=== PATIENT | female | born 1945 | race Caucasian/White ===

== ENCOUNTER → 2018-05-31 14:37 | Outpatient (CLI) | payer MEDICARE, OTHER, SELFPAY ==
[2018-05-31 15:42] LABS: Hemoglobin A1C 8.2 % (4.5-6.2)
[2018-05-31 16:26] LABS: TSH (W/Ref FT4) 14.87 uIU/mL (0.358-3.74)
[2018-05-31 16:48] LABS: FREE T4 0.73 ng/dL (0.76-1.46)
== END ==
PROVIDERS: PCP Family Medicine; Visit Provider Family Medicine
DX: E11.9 Type 2 diabetes mellitus without complications (principal); R79.89 Other specified abnormal findings of blood chemistry
CPT/HCPCS: 36415; 83036; 84439; 84443

== ENCOUNTER → 2018-06-04 07:57 | Outpatient (CLI) | payer MEDICARE, OTHER, SELFPAY ==
--- NOTE | 2018-06-04 08:00 | DI.REPORT_ITS ---
SYMPTOM/DIAGNOSIS: FELL 3 WEEKS AGO, M79.605, PAIN IN LEG, LT FOOT PAIN, M79.672 LEFT FOOT: Three views. Comparison is made with 05/07/12. No acute or healing fracture or dislocation is identified. The joint spaces appear fairly well maintained. Mild spurring is noted at the talonavicular joint and the articulation between the navicular and the cuneiforms. There is spurring seen at the posterior calcaneus. There is diffuse soft tissue swelling of the left foot. No radiopaque foreign bodies are present. IMPRESSION: 1 No acute or healing fracture or dislocation. 2. Generalized soft tissue swelling of the left foot. LEFT TIB-FIB: Two views. No bone or joint abnormality is identified. No radiopaque foreign bodies are seen in the soft tissues. IMPRESSION: Negative examination.
== END ==
PROVIDERS: PCP Family Medicine; Visit Provider Family Medicine
DX: M79.672 Pain in left foot (principal); M79.605 Pain in left leg; M79.89 Other specified soft tissue disorders
CPT/HCPCS: 73590; 73630

== ENCOUNTER 2018-06-20 02:05 | Outpatient (CLI) | payer MEDICARE, OTHER, SELFPAY ==
--- NOTE | 2018-07-11 21:57 | W.CARDEVENT ---
Cardiac Event Recorder Cardiac Event Note: [employer] event recorder report Date of service: 06/20/2018 Referring physician: Dr. Vic Toth Enrollment: 06/20/2018-06/30/2018 Indication: Syncope Findings: 1. Baseline sinus rhythm, 63-126/min, average 90/min. 2. Rare PAC, less than 1%, no SVT, no AF. 3. Rare PVC, less than 1%, no VT. 4. No pauses. 5. 3 triggered events, all sinus rhythm/sinus tachycardia, 87-108/min, 1 event with a single PVC. 6. No symptoms recorded.
--- NOTE | 2018-07-11 22:01 | CER_ITS ---
Cardiac Event Recorder Cardiac Event Note: [employer] event recorder report Date of service: 06/20/2018 Referring physician: Dr. Vic Toth Enrollment: 06/20/2018-06/30/2018 Indication: Syncope Findings: 1. Baseline sinus rhythm, 63-126/min, average 90/min. 2. Rare PAC, less than 1%, no SVT, no AF. 3. Rare PVC, less than 1%, no VT. 4. No pauses. 5. 3 triggered events, all sinus rhythm/sinus tachycardia, 87-108/min, 1 event with a single PVC. 6. No symptoms recorded.
== END 2018-06-20 02:25 ==
PROVIDERS: PCP Family Medicine; Visit Provider Family Medicine
DX: R55 Syncope and collapse (principal); R00.0 Tachycardia, unspecified
CPT/HCPCS: 93225

== ENCOUNTER 2018-07-11 21:57 | Outpatient (CLI) | payer MEDICARE, OTHER, SELFPAY | END 2018-07-11 22:17 | PROVIDERS: PCP Family Medicine; Visit Provider Internal Medicine Cardiovascular Disease | DX: R55 Syncope and collapse (principal); R00.0 Tachycardia, unspecified | CPT/HCPCS: 0298T ==

== ENCOUNTER 2018-10-15 13:49 | Emergency (ER) | payer MEDICARE, OTHER, SELFPAY ==
[2018-10-15 14:13] VITALS: BP 159/100; PULSE 77; RESP 16; TEMP 37; O2SAT 94
--- NOTE | 2018-10-15 15:18 | DI.RAD_ITS ---
SYMPTOMS/DIAGNOSIS: COUGH X 1 WEEK CHEST X-RAY, PA AND LATERAL: Comparison is 03/01/18. The heart is normal in size. The lungs are clear. The mediastinal structures and pleura appear intact. IMPRESSION: Normal chest.
--- NOTE | 2018-10-15 16:09 | W.ED.GENAD ---
Discharge Plan Disposition Patient Disposition: HOME Condition: Good Discharge Details Chief Complaint: RespSymp Clinical Impression: Community acquired pneumonia Primary Care Provider: Jose Toth ED Provider: Brent Rojo Home Meds and New Rx's Prescriptions: New doxycycline hyclate 100 mg tablet 100 mg PO BID Qty: 14 RF: 0 No Action loratadine 10 MG tablet 10 mg PO DAILY PRN Qty: 90 RF: 4 aspirin [Aspir-81] 81 MG tablet,delayed release (DR/EC) 81 mg PO DAILY Qty: 90 RF: 3 gabapentin 100 MG capsule 2 cap PO HS Qty: 180 RF: 4 escitalopram oxalate [Lexapro] 20 MG tablet 20 mg PO DAILY Qty: 90 RF: 3 magnesium oxide [MagOx] 400 MG tablet 400 mg PO DAILY Qty: 90 RF: 3 Novolog Flexpen U-100 Insulin 100 UNIT/1 ML insulin pen 30 - 60 unit SQ AC Qty: 5 RF: 11 meclizine 25 MG tablet 12.5 - 25 mg PO TID PRNQty: 90 RF: 1 trazodone 150 MG tablet 0.5 - 1 tab PO HS Qty: 90 RF: 4 Lantus Solostar U-100 Insulin 100 UNIT/1 ML insulin pen 70 u SQ HS Qty: 5 RF: 11 simvastatin 20 MG tablet 20 mg PO HS Qty: 90 RF: 4 losartan 25 MG tablet 25 mg PO DAILY Qty: 90 RF: 3 levothyroxine 100 MCG tablet 100 mcg PO DAILY Qty: 90 RF: 3 blood sugar diagnostic [Blood Glucose Test] 1 EACH strip 1 strip Miscellaneous 4-6X/DAY Qty: 550 RF: 4 metformin 1,000 MG tablet 1,000 mg PO BID Qty: 180 RF: 4 omeprazole 20 MG capsule,delayed release(DR/EC) 20 mg PO DAILY Qty: 90 RF: 2 Flovent HFA 12 GM HFA aerosol inhaler 1 puff Inhalation BID Qty: 1 RF: 5 albuterol sulfate [ProAir HFA] 8.5 GM HFA aerosol inhaler 2 puff Inhalation Q6H PRN Qty: 1 RF: 11 pen needle, diabetic [BD Ultra-Fine Madai Pen Needle] 1 EACH needle 1 ea Miscellaneous AC & HS Qty: 400 RF: 4 lancets 1 EACH misc 1 ea Intradermal 4-6X/DAY Qty: 550 RF: 4 fluticasone 16 GM spray,suspension 1 - 2 spry NS DAILY PRN (Reason: Nasal Congestion) Qty: 1 RF: 0 guaifenesin [Mucinex] 1,200 MG tablet extended release 12hr 1,200 mg PO Q12H PRN (Reason: Cold Symptons) Qty: 14 RF: 0 Discharge Instructions Instructions: Community Acquired Pneumonia (ED) Additional Instructions: Please take your Ventolin inhaler every 4-6 hours for the next 24-48 hours. Please take the medication as directed. If you notice any worsening of your symptoms, or any new symptoms such as vomiting, diarrhea, fever, chills, shortness of breath, chest pain, numbness, weakness, or fainting , please return immediately to the emergency department for reevaluation. Please follow up with your primary care provider as soon as possible for reassessment and reevaluation. As always, it was a pleasure participating in your medical care today. Referrals: Jose Toth [Primary Care Provider] - Discharge Data Discharge Date/Time-TO BE ENTERED AT DEPARTURE: 10/15/18 16:51 Medical Decision Making This is a pleasant 73-year-old female who presents with 1 week of upper respiratory symptoms of cough with productive yellow sputum. She has no risk there is a red flag for pulmonary embolism, no history of cardiac disease. No chest pain or chest heaviness. Vital signs are reassuring, signs and symptoms are concerning for bronchitis with her asthma. Because of the patient's age, we will prescribe doxycycline, recommend continued ventolin Use every 4-6 hours. We discussed red flags which to return and the importance of close follow-up with her PCP. I have extensively reviewed the treatment plan and discharge instructions with the patient. I have addressed all patient concerns at this time. The patient was made aware of what symptoms to monitor for that would warrant a return to the emergency department. Discussed the plan with the patient, they demonstrate verbal understanding and agreement with our assessment and plan at this time. CHEST X-RAY, PA AND LATERAL: Comparison is 03/01/18. The heart is normal in size. The lungs are clear. The mediastinal structures and pleura appear intact. IMPRESSION: Normal chest. Ordered By: Brent Rojo DO [facility] General Date/Time Provider Initiated Documentation: 10/15/18 14:56. HPI Narrative: This is a 73-year-old female who presents with 1 week of upper respiratory infection-like symptoms of cough with productive yellow sputum, achiness, and congestion in her face. She denies any fever or chills. She denies any hemoptysis, chest pain, shortness of breath, numbness, tingling, weakness, arm, neck, or shoulder pain. She denies any vomiting or diarrhea. She has been taking her inhalers at home and this is been helping. Patient denies any history of PE. Denies PE risk factors such as recent long car rides, immobilization, recent surgery, prior history of DVT or PE, family history of PE or DVT, morbid obesity, exogenous estrogen and smoking, hemoptysis, history of cancer. Patient denies any history of significant cardiac disease. Patient has no other complaints or modifying factors at this time. Patient did get her influenza shot this year. Related Data Home Medications Medication Instructions Recorded Confirmed loratadine 10 mg PO DAILY PRN #90 tab-cap 06/16/17 10/15/18 aspirin [Aspir-81] 81 mg PO DAILY #90 tab-cap 09/22/17 gabapentin 2 cap PO HS #180 tab-cap 09/22/17 10/15/18 escitalopram oxalate [Lexapro] 20 mg PO DAILY #90 tab-cap 10/20/17 insulin aspart U-100 [Novolog 30 - 60 unit SQ AC #5 box 12/22/17 10/15/18 Flexpen] magnesium oxide [MagOx] 400 mg PO DAILY #90 tab-cap 12/22/17 10/15/18 fluticasone 1 - 2 spry NS DAILY PRN #1 btl 01/27/18 03/01/18 guaifenesin [Mucinex] 1,200 mg PO Q12H PRN #14 tab.er.12h 01/27/18 10/15/18 meclizine 12.5 - 25 mg PO TID PRN #90 tab-cap 02/23/18 10/15/18 trazodone 0.5 - 1 tab PO HS #90 tab-cap 03/28/18 10/15/18 insulin glargine [Lantus Solostar] 70 u SQ HS #5 box 03/30/18 10/15/18 losartan 25 mg PO DAILY #90 tab-cap 05/24/18 10/15/18 simvastatin 20 mg PO HS #90 tab-cap 05/24/18 10/15/18 levothyroxine 100 mcg PO DAILY #90 tab-cap 05/31/18 10/15/18 albuterol sulfate [Proair Hfa] 2 puff INHALATION Q6H PRN #1 06/01/18 inhaler blood sugar diagnostic [Glucose #550 strip 06/01/18 Test Strip] fluticasone [Flovent 220mcg] 1 puff INHALATION BID #1 inhaler 06/01/18 10/15/18 lancets #550 ea 06/01/18 metformin 1,000 mg PO BID #180 tab-cap 06/01/18 10/15/18 omeprazole 20 mg PO DAILY #90 tab-cap 06/01/18 10/15/18 pen needle, diabetic [Bd #400 ndl 06/01/18 Ultra-Fine Pen Needle] doxycycline hyclate 100 mg PO BID #14 tab 10/15/18 Previous Rx's Medication Instructions Recorded aspirin [Aspir-81] 81 mg PO DAILY #90 tab-cap 09/22/17 gabapentin 2 cap PO HS #180 tab-cap 09/22/17 escitalopram oxalate [Lexapro] 20 mg PO DAILY #90 tab-cap 10/20/17 insulin aspart U-100 [Novolog 30 - 60 unit SQ AC #5 box 12/22/17 Flexpen] magnesium oxide [MagOx] 400 mg PO DAILY #90 tab-cap 12/22/17 fluticasone 1 - 2 spry NS DAILY PRN #1 btl 01/27/18 guaifenesin [Mucinex] 1,200 mg PO Q12H PRN #14 tab.er.12h 01/27/18 trazodone 0.5 - 1 tab PO HS #90 tab-cap 03/28/18 insulin glargine [Lantus Solostar] 70 u SQ HS #5 box 03/30/18 losartan 25 mg PO DAILY #90 tab-cap 05/24/18 simvastatin 20 mg PO HS #90 tab-cap 05/24/18 levothyroxine 100 mcg PO DAILY #90 tab-cap 05/31/18 albuterol sulfate [Proair Hfa] 2 puff INHALATION Q6H PRN #1 06/01/18 inhaler blood sugar diagnostic [Glucose #550 strip 06/01/18 Test Strip] fluticasone [Flovent 220mcg] 1 puff INHALATION BID #1 inhaler 06/01/18 lancets #550 ea 06/01/18 metformin 1,000 mg PO BID #180 tab-cap 06/01/18 omeprazole 20 mg PO DAILY #90 tab-cap 06/01/18 pen needle, diabetic [Bd #400 ndl 06/01/18 Ultra-Fine Pen Needle] doxycycline hyclate 100 mg PO BID #14 tab 10/15/18 Allergies Allergy/AdvReac Type Severity Reaction Status Date / Time Penicillins Allergy Unknown UNKNOWN Unverified 10/15/18 14:17 REACTION A CHILD lisinopril AdvReac Mild dizzy Unverified 10/15/18 14:17 General Stated Complaint: RespSymp MILLA: 3 Review of Systems Review of Systems All systems reviewed & are unremarkable except as noted in HPI and below PFSH Medical History Anxiety DM (diabetes mellitus) GERD (gastroesophageal reflux disease) Hypothyroidism Neuropathy, upper extremity Surgical History Cholecystectomy (~2002) Total replacement of hip colonoscopy (08/08/16) Family History Mother Diabetes Personal history of malignant neoplasm Father Essential hypertension Heart disease Sister Diabetes Heart disease Grandfather No problems noted. Grandfather Heart disease Grandmother Heart disease Grandmother Heart disease Social History Smoking/Tobacco Use Status: Never Exam Narrative Exam Narrative: 1.Const: Well-nourished, Well-developed, appearing stated age 2.Eyes: PERRL, no conjunctival injection, and symmetrical lids. 3.ENT: Atraumatic external nose and ears. Moist MM. Neck: Symmetric, trachea midline, No thyromegaly. 4.CVS: +S1/S2, No murmurs or gallops. Peripheral pulses 2+ and equal in all extremities. Brisk capillary refill in all extremities. 5.RESP: Unlabored respiratory effort. Clear to auscultation bilaterally. No wheezes rales or rhonchi 6.GI: Soft, Nontender/Nondistended, No hepatosplenomegaly. No guarding or rebound. 7.MSK: Normocephalic/Atraumatic, Extremities w/o deformity or ttp No cyanosis or clubbing, Normal movement of all extremities 8.Skin: Warm, Dry. No rashes or lesions. 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 Sensation grossly intact, no focal neurologic deficits. 10.Psych: (AAO) x3. Appropriate mood and affect Course Vital Signs Temperature 37 C 10/15/18 14:13 Pulse 77 10/15/18 14:13 Respiratory Rate 16 10/15/18 14:13 Blood Pressure 159/100 H 10/15/18 14:13 Pulse Oximetry 94 L 10/15/18 14:13 Temperature 37 C 10/15/18 14:13 Temperature Source Skin 10/15/18 14:13 Pulse 77 10/15/18 14:13 Respiratory Rate 16 10/15/18 14:13 Respiratory Effort Non-Labored 10/15/18 14:32 Respiratory Depth Normal 10/15/18 14:32 Blood Pressure 159/100 H 10/15/18 14:13 Blood Pressure Position Sitting 10/15/18 14:13 Pulse Oximetry 94 L 10/15/18 14:13 Oxygen Delivery Method Room Air 10/15/18 14:13 Oxygen Flow Rate 0 10/15/18 14:13 Pain Level 8 10/15/18 14:13
[2018-10-15 16:37] VITALS: BP 146/73; PULSE 77; RESP 18; TEMP 36.9; O2SAT 99
[2018-10-15 16:38] VITALS: BP 146/73; PULSE 77; RESP 18; TEMP 36.9; O2SAT 99
== END 2018-10-15 16:51 | disposition home or self-care (01) ==
PROVIDERS: Emergency Provider Student in an Organized Health Care Education/Training Program; PCP Family Medicine
DX: J18.9 Pneumonia, unspecified organism (principal)
CPT/HCPCS: 99283; 71046

== ENCOUNTER 2018-10-24 12:52 | Outpatient (CLI) | payer MEDICARE, SELFPAY ==
[2018-10-24 14:07] LABS: TSH (W/Ref FT4) 7.21 uIU/mL (0.358-3.74)
[2018-10-24 14:09] LABS: Hemoglobin A1C 8.5 % (4.5-6.2)
[2018-10-24 14:49] LABS: FREE T4 0.87 ng/dL (0.76-1.46)
== END 2018-10-24 13:12 ==
PROVIDERS: PCP Family Medicine; Visit Provider Family Medicine
DX: E11.65 Type 2 diabetes mellitus with hyperglycemia (principal); E03.9 Hypothyroidism, unspecified; R79.89 Other specified abnormal findings of blood chemistry
CPT/HCPCS: 36415; 83036; 84439; 84443

== ENCOUNTER 2018-12-10 06:54 | Day surgery (SDC) | payer MEDICARE, SELFPAY ==
--- NOTE | 2018-12-09 19:01 | POEE_ITS ---
History of Present Illness Chief Complaint: Progressive decreased vision, left eye Narrative: The patient is a 73-year-old lady with history of progressive decreased vision in both eyes at both distance and near. She particularly notes difficulty driving. On examination she was noted to have moderate bilateral n uclear and cortical cataracts. The option of cataract surgery was offered to the patient and she felt she was symptomatic enough that she wished to proceed. NOTE: The Chief Complaint, HPI, Past Medical History, Past Surgical History, Family History, Social History, Medications, and complete Ophthalmic Exam with detailed Assessment and Plan have already been documented in the patient's outpatient ophthalmic record and are not covered again in detail here. PFSH Medical History Cortical cataract of left eye (Acute) Nuclear sclerotic cataract of left eye (Acute) Anxiety DM (diabetes mellitus) GERD (gastroesophageal reflux disease) Hypothyroidism Neuropathy, upper extremity Surgical History Cholecystectomy (~2002) Total replacement of hip colonoscopy (08/08/16) Family History Mother Diabetes Personal history of malignant neoplasm Father Essential hypertension Heart disease Sister Diabetes Heart disease Grandfather No problems noted. Grandfather Heart disease Grandmother Heart disease Grandmother Heart disease Social History Smoking and Tabacco status: Never Meds Home Medications Medication Instructions Recorded Confirmed Type loratadine 10 mg PO DAILY PRN #90 tab-cap 06/16/17 12/06/18 History aspirin [Aspir-81] 81 mg PO DAILY #90 tab-cap 09/22/17 12/06/18 Rx guaifenesin [Mucinex] 1,200 mg PO Q12H PRN #14 tab.er.12h 01/27/18 12/06/18 Rx meclizine 12.5 - 25 mg PO TID PRN #90 tab-cap 02/23/18 11/27/18 History trazodone 0.5 - 1 tab PO HS #90 tab-cap 03/28/18 12/06/18 Rx insulin glargine [Lantus Solostar] 70 u SQ HS #5 box 03/30/18 12/06/18 Rx losartan 25 mg PO DAILY #90 tab-cap 05/24/18 12/06/18 Rx simvastatin 20 mg PO HS #90 tab-cap 05/24/18 12/06/18 Rx albuterol sulfate [Proair Hfa] 2 puff INHALATION Q6H PRN #1 06/01/18 12/06/18 Rx inhaler blood sugar diagnostic [Glucose #550 strip 06/01/18 11/27/18 Rx Test Strip] lancets #550 ea 06/01/18 11/27/18 Rx metformin 1,000 mg PO BID #180 tab-cap 06/01/18 12/06/18 Rx omeprazole 20 mg PO DAILY #90 tab-cap 06/01/18 12/06/18 Rx pen needle, diabetic [Bd #400 ndl 06/01/18 11/27/18 Rx Ultra-Fine Pen Needle] empagliflozin 10 mg tablet 10 mg PO DAILY #30 tab 10/24/18 12/06/18 Rx escitalopram 20 mg tablet 20 mg PO DAILY #90 tab-cap 10/24/18 12/06/18 Rx fluticasone 50 mcg/actuation nasal 2 spray NS DAILY PRN #1 gm 10/24/18 12/06/18 Rx spray,suspension insulin aspart U- 100 100 unit/mL 30 - 60 unit SUBCUT AC #5 box 10/24/18 12/06/18 Rx subcutaneous pen levothyroxine 125 mcg capsule 125 mcg PO DAILY #30 cap 10/24/18 12/06/18 Rx magnesium oxide 400 mg (241.3 mg 400 mg PO DAILY #90 tab-cap 10/24/18 12/06/18 Rx magnesium) tablet pneumococcal 13-damián conj 0.5 ml IM ONCE #0.5 ml 10/24/18 11/27/18 Rx vaccine-dip crm (PF) 0.5 mL IM syringe gabapentin 100 mg capsule 200 mg PO HS #180 tab-cap 11/13/18 12/06/18 Rx fluticasone [Flovent HFA] 1 puff INHALATION BID PRN 12/06/18 12/06/18 History Allergies Allergy/AdvReac Type Severity Reaction Status Date / Time Penicillins Allergy Unknown UNKNOWN Unverified 11/27/18 13:50 REACTION A CHILD lisinopril AdvReac Mild dizzy Unverified 11/27/18 13:50 Exam OCULAR EXAM:: Most recent ocular examination reveals corrected visual acuity of 20/25 right eye, 20/40 left eye. Intraocular pressure is 18 OU. Extraocular motility is normal. Pupils equal, round, and reactive without afferent pupillar y defect slit-lamp examination is significant for pupils dilating to 5 mm OU. 2+ nuclear with 1+ cortical cataract OU. Dilated funduscopic examination reveals disc cupping of 0.4 OU with good color. The optic nerves have good perfusion and normal color. The retinal vasculature is normal without significant tortuosity or abnormality. The maculas are normal in appearance with normal contour and foveal reflex appropriate for age. The peripheral retina and vitreous are normal. 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 BRIGHTNESS ACUITY TESTING (BAT):: Brightness acuity testing of the left eye off is 20/40. Low is 20/40. Medium is 20/30. High is 20/30. Assessment and Plan (1) Nuclear sclerotic cataract of left eye: Current visit: No Status: Acute Assessment: Visually significant cataract, left eye. Plan: Cataract extraction with intraocular lens implantation, left eye (2) Cortical cataract of left eye: Current visit: No Status: Acute Assessment: Visually significant cataract, left eye. Plan: Cataract extraction with intraocular lens implantation, left eye Note: NOTE:: The details of the planned surgery, including the risks, indications,limitations,expectations,outcome and possible complications were explained to the patient. The patient understands the complications including, but not limited to: infection, hemorrhage, posterior dislocation of the lens or nuclear fragments which may require the intervention of a vitreoretinal surgeon, possible loss of the eye, or from anesthetic complications. The patient has been made aware of the option of not having surgery, that vision following surgery may not be equal to that prior to surgery, and that the planned surgery may not achieve the intended results. Following this discussion, which the patient appeared to understand, the patient wishes to proceed with cataract surgery with lens implantation of the affected eye to improve and maximize vision.
[2018-12-10] MEDS: Tropicam./Phenyleph. (1/2.5%) 5 ML BTL OS ×3 (07:20→07:36)
[2018-12-10] MEDS: Tetracaine 0.5% 4 ML BTL OS ×4 (07:20→08:28)
[2018-12-10 07:22] VITALS: BP 143/89; PULSE 99; RESP 18; TEMP 36.5; O2SAT 95
[2018-12-10] MEDS: Lidocaine 2% Jelly 6 ML SYR (08:28)
[2018-12-10] MEDS: Povidone-Iodine Ophth 30 ML BTL ×2 (08:28→08:47)
[2018-12-10] MEDS: Lidocaine 1% Pres-Free 5 ML VIAL (08:33)
[2018-12-10] MEDS: Balanced Salt Soln.-PLUS 500 ML BAG (08:36)
--- NOTE | 2018-12-10 08:53 | W.PM.DSUDISC ---
Discharge Plan Disposition Patient Disposition: HOME Condition: Good Discharge Details Attending Provider: Casey aTn Primary Care Provider: Jose Toth. Home Meds and New Rx's Prescriptions: No Action Prevnar 13 (PF) 0.5 mL syringe 0.5 ml IM ONCE Qty: 0.5 RF: 0 escitalopram oxalate [Lexapro] 20 mg tablet 20 mg PO DAILY Qty: 90 RF: 3 fluticasone 50 mcg/actuation spray,suspension 2 spray NS DAILY PRN (Reason: Nasal Congestion) Qty: 1 RF: 0 Novolog Flexpen U-100 Insulin 100 unit/mL insulin pen 30 - 60 unit subcut AC Qty: 5 RF: 11 magnesium oxide [MagOx] 400 mg (241.3 mg magnesium) tablet 400 mg PO DAILY Qty: 90 RF: 3 Jardiance 10 mg tablet 10 mg PO DAILY Qty: 30 RF: 5 levothyroxine 125 mcg capsule 125 mcg PO DAILY Qty: 30 RF: 2 loratadine 10 MG tablet 10 mg PO DAILY PRN Qty: 90 RF: 4 aspirin [Aspir-81] 81 MG tablet,delayed release (DR/EC) 81 mg PO DAILY Qty: 90 RF: 3 meclizine 25 MG tablet 12.5 - 25 mg PO TID PRNQty: 90 RF: 1 trazodone 150 MG tablet 0.5 - 1 tab PO HS Qty: 90 RF: 4 Lantus Solostar U-100 Insulin 100 UNIT/1 ML insulin pen 70 u SQ HS Qty: 5 RF: 11 simvastatin 20 MG tablet 20 mg PO HS Qty: 90 RF: 4 losartan 25 MG tablet 25 mg PO DAILY Qty: 90 RF: 3 Blood Glucose Test 1 EACH strip 1 strip Miscellaneous 4-6X/DAY Qty: 550 RF: 4 metformin 1,000 MG tablet 1,000 mg PO BID Qty: 180 RF: 4 omeprazole 20 MG capsule,delayed release(DR/EC) 20 mg PO DAILY Qty: 90 RF: 2 albuterol sulfate [ProAir HFA] 8.5 GM HFA aerosol inhaler 2 puff Inhalation Q6H PRN Qty: 1 RF: 11 pen needle, diabetic [BD Ultra-Fine Madai Pen Needle] 1 EACH needle 1 ea Miscellaneous AC & HS Qty: 400 RF: 4 lancets 1 EACH misc 1 ea Intradermal 4-6X/DAY Qty: 550 RF: 4 gabapentin 100 mg capsule 200 mg PO HS Qty: 180 RF: 4 guaifenesin [Mucinex] 1,200 MG tablet extended release 12hr 1,200 mg PO Q12H PRN (Reason: Cold Symptons) Qty: 14 RF: 0 Flovent HFA 220 mcg/actuation HFA aerosol inhaler 1 puff Inhalation BID PRNRF: 0 Discharge Instructions Stand Alone Forms: Post-op Topical Cataract, Shannan Carrion (DSU) Discharge Orders Discharge Orders: Discharge Order (Routine); Ordered 12/10/18 Ordered By: Casey Tan DS: Diagnosis Discharge Diagnosis (1) Status post cataract extraction and insertion of intraocular lens of left eye: Status: Chronic
--- NOTE | 2018-12-10 08:56 | ROE_ITS ---
Date of service: 12/10/18 Time of Service: 08:55 Operative Note PRE-OP DIAGNOSIS: Cataract, left eye POST-OP DIAGNOSIS: same PROCEDURE: Cataract extraction using phacoemulsification with intraocular lens implant, left eye SURGEON: Casey Tan ANESTHESIA: MAC and local (sub-tenon's anesthetic infiltration) PATHOLOGY: none sent COMPLICATIONS: None Patient was transported to: same day Patient's condition: stable Implants: Andre [employer] Andre [employer] / [employer] Tecnis [id number] Indications: Progressive decreased vision due to cataract, left eye Procedure Description: CATARACT SURGERY OPERATIVE REPORT PREOPERATIVE DIAGNOSIS: Nuclear/cortical cataract, left eye POSTOPERATIVE DIAGNOSIS: Same OPERATION: Cataract extraction using phacoemulsification with posterior chamber intraocular lens implant, left eye. IOL: IOL Rolling Chair Pusher/Model: J&J Vision / CHRISTI Tecnis [id number] IOL Power: + 22.50 diopters IOL Serial Number: [id number] Optic Diameter: 6.0mm Haptic/Overall Diameter: 13.0mm PHACO INFO: Crispin Simple [employer] Vision System with OZil and Active Fluidics Cumulative Dispersed Energy (CDE): 10.2 seconds SURGEON: Casey Tan MD, ANAHI ANESTHESIA: Monitored Anesthesia Care (MAC), with local sub-tenon's anesthetic infiltration COMPLICATIONS: None SPECIMENS: None INDICATIONS FOR PROCEDURE: The patient is a 73-year-old lady with history of diminished visual acuity and both eyes who was noted to have moderate bilateral nuclear and cortical cataracts. She was significantly symptomatically she desired cataract surgery and attempt to improve and maximize her vision. PROCEDURE: The correct surgical eye was identified and marked as the left eye and the pupil was dilated in the preoperative area using mydriatics and cycloplegics. The dilated pupil size was 6.5 mm. Oral sedation was administered in the form of an Imprimis MKO Melt (midazolam 3mg/ketamine 25mg/ondansetron 2mg). The patient was brought to the operating room where cardiopulmonary monitoring was instituted and surgical time-out was performed, confirming the correct operative eye and IOL power. Topical anesthesia was administered and ophthalmic povidone-iodine 5% was instilled into the conjunctival fornices. Lidocaine gel was applied to the cornea and the mary jane-ocular area was prepped with Betadine 10% solution and draped in the usual sterile fashion for intraocular surgery, including an aperture drape. A Tegaderm transparent film dressing was cut in half and used to cover the lashes and lid margins. Care was taken to sequester the lashes and lid margins under the Tegaderm dressing. A lid speculum was placed between the lids of the operative eye and the Dmitriy-Jesús operating microscope was maneuvered into position. Riky scissors were then used to make a conjunctival buttonhole approximately 6mm posterior to the limbus in the inferonasal quadrant. Blunt dissection was carried out to expose bare sclera, and a blunt-tipped sub-tenon?s anesthesia cannula was introduced and passed posteriorly along the globe where non- preserved plain lidocaine was injected into posterior sub-Tenon?s space. A sideport knife was used to make a paracentesis port superior/superiortemporal, and the anterior chamber was filled with Healon GV. A 2.4mm keratome knife was used to create a half-thickness groove at the limbus and then to construct a three-plane near-clear corneal tunnel extending 2.0mm into clear cornea in the temporal position. . A flap was raised on the anterior capsule and capsulorhexis forceps were used to complete a continuous curvilinear capsulorhexis of 5.0 mm. Balanced salt solution was then used to perform cortical cleaving hydrodissection and nuclear hydrodelineation until the lens could be freely rotated within the capsular bag. The lens nucleus was then disassembled and removed within the capsular bag and iris plane using phacoemulsification. Residual cortical material was removed using the 45-degree angled silicone I/A tip with 0.3mm port. The posterior capsule was carefully polished to remove as much residual lens epithelial cells as safely possible. The capsular bag was then inflated and the anterior chamber deepened with viscoelastic. The lens implant described above was inserted into the capsular bag using the CHRISTI [place] Injector. A Kuglen hook was used to dial the IOL into position. Residual viscoelastic was then removed first from posterior to the IOL, then from the anterior chamber using the I/A handpiece. The lens implant was noted to center nicely within the capsular bag. The incisions were stromally hydrated, and the anterior chamber was reformed using BSS. Then 0.4cc of moxifloxacin 1.5mg/ml were injected into the capsular bag and anterior chamber. The incisions were checked with a Weck spear and found to be secure. Several drops of ophthalmic povidone-iodine 5% were then applied to the eye followed by two drops of Imprimis combination moxifloxacin/dexamethasone solution. The drapes were removed and a clear plastic protective eye shield was placed over the eye. The patient was then returned to Same Day Surgery in stable condition.
[2018-12-10 09:15] VITALS: BP 111/72; PULSE 86; RESP 18; TEMP 36.6; O2SAT 92
== END 2018-12-10 09:44 | disposition home or self-care (01) ==
PROVIDERS: PCP Family Medicine; Visit Provider Ophthalmology
PROC: (CPT 66984; principal; 2018-12-10 08:45)
DX: H25.812 Combined forms of age-related cataract, left eye (principal); E11.9 Type 2 diabetes mellitus without complications; Z79.4 Long term (current) use of insulin; J44.9 Chronic obstructive pulmonary disease, unspecified; I10 Essential (primary) hypertension
CPT/HCPCS: 66984; V2632

== ENCOUNTER 2018-12-24 06:31 | Day surgery (SDC) | payer MEDICARE, SELFPAY ==
--- NOTE | 2018-12-23 16:34 | POEE_ITS ---
History of Present Illness Chief Complaint: Progressive decreased vision, left eye Narrative: The patient is a 73-year-old lady with history of progressive decreased vision in both eyes at both distance and near. On examination she was noted to have moderate bilateral nuclear and cortical cataracts. She was sign ificantly symptomatically she desired cataract surgery which was performed OS on 12/10/2018. Postoperatively she has regained uncorrected vision of 20/40 OS, correctable to 20/30. She now presents for cataract surgery in the right eye. NOTE: The Chief Complaint, HPI, Past Medical History, Past Surgical History, Family History, Social History, Medications, and complete Ophthalmic Exam with detailed Assessment and Plan have already been documented in the patient's outpatient ophthalmic record and are not covered again in detail here. PFSH Medical History Cortical cataract of right eye (Acute) Nuclear sclerotic cataract of right eye (Acute) Cortical cataract of left eye (Resolved) Nuclear sclerotic cataract of left eye (Resolved) Anxiety DM (diabetes mellitus) GERD (gastroesophageal reflux disease) Hypothyroidism Neuropathy, upper extremity Surgical History Status post cataract extraction and insertion of intraocular lens of left eye (Chronic 12/10/18) Cholecystectomy (~2002) Total replacement of hip colonoscopy (08/08/16) Family History Mother Diabetes Personal history of malignant neoplasm Father Essential hypertension Heart disease Sister Diabetes Heart disease Grandfather No problems noted. Grandfather Heart disease Grandmother Heart disease Grandmother Heart disease Social History Smoking/Tobacco Use Status: Never Drug use: Never Do you feel safe in your relationship?: Yes Meds Home Medications Medication Instructions Recorded Confirmed Type loratadine 10 mg PO DAILY PRN #90 tab-cap 06/16/17 12/10/18 History aspirin [Aspir-81] 81 mg PO DAILY #90 tab-cap 09/22/17 12/10/18 Rx guaifenesin [Mucinex] 1,200 mg PO Q12H PRN #14 tab.er.12h 01/27/18 12/10/18 Rx meclizine 12.5 - 25 mg PO TID PRN #90 tab-cap 02/23/18 12/10/18 History trazodone 0.5 - 1 tab PO HS #90 tab-cap 03/28/18 12/10/18 Rx insulin glargine [Lantus Solostar] 70 u SQ HS #5 box 03/30/18 12/10/18 Rx losartan 25 mg PO DAILY #90 tab-cap 05/24/18 12/10/18 Rx simvastatin 20 mg PO HS #90 tab-cap 05/24/18 12/10/18 Rx albuterol sulfate [Proair Hfa] 2 puff INHALATION Q6H PRN #1 06/01/18 12/10/18 Rx inhaler blood sugar diagnostic [Glucose #550 strip 06/01/18 11/27/18 Rx Test Strip] lancets #550 ea 06/01/18 11/27/18 Rx metformin 1,000 mg PO BID #180 tab-cap 06/01/18 12/10/18 Rx omeprazole 20 mg PO DAILY #90 tab-cap 06/01/18 12/10/18 Rx pen needle, diabetic [Bd #400 ndl 06/01/18 11/27/18 Rx Ultra-Fine Pen Needle] empagliflozin 10 mg tablet 10 mg PO DAILY #30 tab 10/24/18 12/10/18 Rx escitalopram 20 mg tablet 20 mg PO DAILY #90 tab-cap 10/24/18 12/10/18 Rx fluticasone propionate 50 2 spray NS DAILY PRN #1 gm 10/24/18 12/10/18 Rx mcg/actuation nasal spray,suspension insulin aspart U- 100 100 unit/mL 30 - 60 unit SUBCUT AC #5 box 10/24/18 12/10/18 Rx subcutaneous pen levothyroxine 125 mcg capsule 125 mcg PO DAILY #30 cap 10/24/18 12/10/18 Rx magnesium oxide 400 mg (241.3 mg 400 mg PO DAILY #90 tab-cap 10/24/18 12/10/18 Rx magnesium) tablet pneumococcal 13-damián conj 0.5 ml IM ONCE #0.5 ml 10/24/18 12/10/18 Rx vaccine-dip crm (PF) 0.5 mL IM syringe gabapentin 100 mg capsule 200 mg PO HS #180 tab-cap 11/13/18 12/10/18 Rx fluticasone propionate [Flovent 1 puff INHALATION BID PRN 12/06/18 12/10/18 History HFA] Allergies Allergy/AdvReac Type Severity Reaction Status Date / Time Penicillins Allergy Unknown UNKNOWN Verified 12/10/18 07:10 REACTION A CHILD lisinopril AdvReac Mild dizzy Verified 12/10/18 07:10 Exam OCULAR EXAM:: Most recent ocular examination is significant for corrected visual acuity of 20/50 OD, 20/30 OS. Pupils equal, round, and reactive without afferent pupillary defect intraocular pressure is 18 OD, 17 OS. Extraocular motility is normal. Slit-lamp examination is significant for pupils dilating to 5 mm OU. 2+ nuclear with 1+ cortical cataract OD. Well-positioned PCIOL OS with clear posterior capsule. Dilated funduscopic examination shows disc cupping of 0.4 OU with good color. The optic nerves have good perfusion and normal color. The retinal vasculature is normal without significant tortuosity or abnormality. The maculas are normal in appearance with normal contour and foveal reflex appropriate for age. The peripheral retina and vitreous are normal. BRIGHTNESS ACUITY TESTING (BAT):: Brightness acuity testing of the right eye off is 20/50. Low is 20/30. Medium is 20/30. High is 20/40. Assessment and Plan (1) Nuclear sclerotic cataract of right eye: Current visit: Yes Status: Acute Assessment: Visually significant cataract, right eye. Plan: Cataract extraction with intraocular lens implantation, right eye (2) Cortical cataract of right eye: Current visit: Yes Status: Acute Assessment: Visually significant cataract, right eye. Plan: Cataract extraction with intraocular lens implantation, right eye Note: NOTE:: The details of the planned surgery, including the risks, indications,limitations,expectations,outcome and possible complications were explained to the patient. The patient understands the complications including, but not limited to: infection, hemorrhage, posterior dislocation of the lens or nuclear fragments which may require the intervention of a vitreoretinal surgeon, possible loss of the eye, or from anesthetic complications. The patient has been made aware of the option of not having surgery, that vision following surgery may not be equal to that prior to surgery, and that the planned surgery may not achieve the intended results. Following this discussion, which the patient appeared to understand, the patient wishes to proceed with cataract surgery with lens implantation of the affected eye to improve and maximize vision.
--- NOTE | 2018-12-23 19:26 | W.PM.DSUDISC ---
Discharge Plan Disposition Patient Disposition: HOME Condition: Stable Discharge Details Attending Provider: Casey Tan Primary Care Provider: Jose Toth. Home Meds and New Rx's Prescriptions: No Action Prevnar 13 (PF) 0.5 mL syringe 0.5 ml IM ONCE Qty: 0.5 RF: 0 escitalopram oxalate [Lexapro] 20 mg tablet 20 mg PO DAILY Qty: 90 RF: 3 fluticasone propionate 50 mcg/actuation spray,suspension 2 spray NS DAILY PRN (Reason: Nasal Congestion) Qty: 1 RF: 0 Novolog Flexpen U-100 Insulin 100 unit/mL insulin pen 30 - 60 unit subcut AC Qty: 5 RF: 11 magnesium oxide [MagOx] 400 mg (241.3 mg magnesium) tablet 400 mg PO DAILY Qty: 90 RF: 3 Jardiance 10 mg tablet 10 mg PO DAILY Qty: 30 RF: 5 levothyroxine 125 mcg capsule 125 mcg PO DAILY Qty: 30 RF: 2 loratadine 10 MG tablet 10 mg PO DAILY PRN Qty: 90 RF: 4 aspirin [Aspir-81] 81 MG tablet,delayed release (DR/EC) 81 mg PO DAILY Qty: 90 RF: 3 meclizine 25 MG tablet 12.5 - 25 mg PO TID PRNQty: 90 RF: 1 trazodone 150 MG tablet 0.5 - 1 tab PO HS Qty: 90 RF: 4 Lantus Solostar U-100 Insulin 100 UNIT/1 ML insulin pen 70 u SQ HS Qty: 5 RF: 11 simvastatin 20 MG tablet 20 mg PO HS Qty: 90 RF: 4 losartan 25 MG tablet 25 mg PO DAILY Qty: 90 RF: 3 Blood Glucose Test 1 EACH strip 1 strip Miscellaneous 4-6X/DAY Qty: 550 RF: 4 metformin 1,000 MG tablet 1,000 mg PO BID Qty: 180 RF: 4 omeprazole 20 MG capsule,delayed release(DR/EC) 20 mg PO DAILY Qty: 90 RF: 2 albuterol sulfate [ProAir HFA] 8.5 GM HFA aerosol inhaler 2 puff Inhalation Q6H PRN Qty: 1 RF: 11 pen needle, diabetic [BD Ultra-Fine Madai Pen Needle] 1 EACH needle 1 ea Miscellaneous AC & HS Qty: 400 RF: 4 lancets 1 EACH misc 1 ea Intradermal 4-6X/DAY Qty: 550 RF: 4 gabapentin 100 mg capsule 200 mg PO HS Qty: 180 RF: 4 guaifenesin [Mucinex] 1,200 MG tablet extended release 12hr 1,200 mg PO Q12H PRN (Reason: Cold Symptons) Qty: 14 RF: 0 Flovent HFA 220 mcg/actuation HFA aerosol inhaler 1 puff Inhalation BID PRNRF: 0 Discharge Instructions Stand Alone Forms: Post-op Topical Cataract, Shannan Carrion (DSU) Discharge Orders Discharge Orders: Discharge Order (Routine); Ordered 12/24/18 Ordered By: Casey Tan DS: Diagnosis Discharge Diagnosis (1) Nuclear sclerotic cataract of right eye: Status: Resolved (2) Cortical cataract of right eye: Status: Resolved (3) Status post cataract extraction and insertion of intraocular lens of right eye: Status: Chronic
[2018-12-24 07:10] VITALS: BP 141/89; PULSE 95; RESP 18; TEMP 36.8; O2SAT 96
[2018-12-24] MEDS: Tropicam./Phenyleph. (1/2.5%) 5 ML BTL OD ×3 (07:18→07:27)
[2018-12-24] MEDS: Tetracaine 0.5% 4 ML BTL OD ×3 (07:18→08:21)
[2018-12-24] MEDS: Povidone-Iodine Ophth 30 ML BTL (08:22)
[2018-12-24] MEDS: Lidocaine 2% Jelly 6 ML SYR (08:22)
[2018-12-24] MEDS: Balanced Salt Soln.-PLUS 500 ML BAG (08:27)
[2018-12-24] MEDS: Lidocaine 1% Pres-Free 5 ML VIAL (08:29)
--- NOTE | 2018-12-24 08:54 | ROE_ITS ---
Date of service: 12/24/18 Time of Service: 08:52 Operative Note PRE-OP DIAGNOSIS: Cataract, right eye PROCEDURE: Cataract extraction using phacoemulsification with intraocular lens implant, right eye SURGEON: Casey Tan ANESTHESIA: MAC and local (sub-tenon's anesthetic infiltration) ESTIMATED BLOOD LOSS: 0 PATHOLOGY: none sent COMPLICATIONS: None Patient was transported to: same day Patient's condition: stable Implants: [employer] / [employer] Tecnis [id number] intraocular lens Indications: Progressive decreased vision due to cataract, right eye Procedure Description: CATARACT SURGERY OPERATIVE REPORT PREOPERATIVE DIAGNOSIS: Nuclear/cortical cataract, right eye POSTOPERATIVE DIAGNOSIS: Same OPERATION: Cataract extraction using phacoemulsification with posterior chamber intraocular lens implant, right eye. IOL: IOL Kitchen Steward/Model: J[employer]J [employer] / CHRISTI Tecnis ZCB00 IOL Power: + 22.0 diopters IOL Serial Number: [id number] Optic Diameter: 6.0mm Haptic/Overall Diameter: 13.0mm PHACO INFO: [employer] Internationalurion Vision System with OZil and Active Fluidics Cumulative Dispersed Energy (CDE): 9.04 seconds SURGEON: Casey Tan MD, ANAHI ANESTHESIA: Monitored Anesthesia Care (MAC), with local sub-tenon's anesthetic infiltration COMPLICATIONS: None SPECIMENS: None INDICATIONS FOR PROCEDURE: The patient is a 73-year-old lady with history of diminished visual acuity in both eyes secondary to the development of bilateral nuclear and cortical cataract. She has already undergone cataract surgery in her left eye on 12/10/2018. She now presents for cataract surgery in the right eye. PROCEDURE: The correct surgical eye was identified and marked as the right eye and the pupil was dilated in the preoperative area using mydriatics and cycloplegics. The dilated pupil size was 6.5 mm. Oral sedation was administered in the form of an Imprimis MKO Melt (midazolam 3mg/ketamine 25mg/ondansetron 2mg). The patient was brought to the operating room where cardiopulmonary monitoring was instituted and surgical time-out was performed, confirming the correct operative eye and IOL power. Topical anesthesia was administered and ophthalmic povidone-iodine 5% was instilled into the conjunctival fornices. Lidocaine gel was applied to the cornea and the mary jane-ocular area was prepped with Betadine 10% solution and draped in the usual sterile fashion for intraocular surgery, including an aperture drape. A Tegaderm transparent film dressing was cut in half and used to cover the lashes and lid margins. Care was taken to sequester the lashes and lid margins under the Tegaderm dressing. A lid speculum was placed between the lids of the operative eye and the Dmitriy-Jesús operating microscope was maneuvered into position. Riky scissors were then used to make a conjunctival buttonhole approximately 6mm posterior to the limbus in the inferonasal quadrant. Blunt dissection was carried out to expose bare sclera, and a blunt-tipped sub-tenon?s anesthesia cannula was introduced and passed posteriorly along the globe where non- preserved plain lidocaine was injected into posterior sub-Tenon?s space. A sideport knife was used to make a paracentesis port inferiortemporally, and the anterior chamber was filled with Healon GV. A 2.4mm keratome knife was used to create a half-thickness groove at the limbus and then to construct a three-plane near-clear corneal tunnel extending 2.0mm into clear cornea in the superiortemporal position. . A flap was raised on the anterior capsule and capsulorhexis forceps were used to complete a continuous curvilinear capsulorhexis of 5.0 mm. Balanced salt solution was then used to perform cortical cleaving hydrodissection and nuclear hydrodelineation until the lens could be freely rotated within the capsular bag. The lens nucleus was then disassembled and removed within the capsular bag and iris plane using phacoemulsification. Residual cortical material was removed using the I/A handpiece. The posterior capsule was carefully polished to remove as much residual lens epithelial cells as safely possible. The capsular bag was then inflated and the anterior chamber deepened with viscoelastic. The lens implant described above was inserted into the capsular bag using the CHRISTI [place] Injector. A Kuglen hook was used to dial the IOL into position. Residual viscoelastic was then removed first from posterior to the IOL, then from the anterior chamber using the I/A handpiece. The lens implant was noted to center nicely within the capsular bag. The incisions were stromally hydrated, and the anterior chamber was reformed using BSS. Then 0.4cc of moxifloxacin 1.5mg/ml were injected into the capsular bag and anterior chamber. The incisions were checked with a Weck spear and found to be secure. Several drops of ophthalmic povidone-iodine 5% were then applied to the eye followed by two drops of Imprimis combination moxifloxacin/dexamethasone solution. The drapes were removed and a clear plastic protective eye shield was placed over the eye. The patient was then returned to Same Day Surgery in stable condition.
[2018-12-24 09:15] VITALS: BP 117/84; PULSE 87; RESP 18; TEMP 36.7; O2SAT 96
== END 2018-12-24 09:40 | disposition home or self-care (01) ==
LOC: SUR 06:31
PROVIDERS: PCP Family Medicine; Visit Provider Ophthalmology
PROC: (CPT 66984; principal; 2018-12-24 08:45)
DX: H25.811 Combined forms of age-related cataract, right eye (principal); Z98.42 Cataract extraction status, left eye; Z96.1 Presence of intraocular lens; E11.9 Type 2 diabetes mellitus without complications; Z79.4 Long term (current) use of insulin; J44.9 Chronic obstructive pulmonary disease, unspecified; I10 Essential (primary) hypertension
CPT/HCPCS: 66984; V2632

== ENCOUNTER 2019-01-22 12:33 | Outpatient (CLI) | payer MEDICARE, SELFPAY ==
[2019-01-22 11:52] LABS: TSH (W/Ref FT4) 0.23 uIU/mL (0.358-3.74)
[2019-01-22 12:13] LABS: FREE T4 1.35 ng/dL (0.76-1.46)
== END 2019-01-22 12:53 ==
PROVIDERS: PCP Family Medicine; Visit Provider Family Medicine
DX: E03.9 Hypothyroidism, unspecified (principal)
CPT/HCPCS: 36415; 84439; 84443

== ENCOUNTER → 2019-01-24 09:31 | Outpatient (BNVA) | payer MEDICARE, OTHER, SELFPAY | PROVIDERS: PCP Family Medicine; Referring Provider Family Medicine; Visit Provider Orthopaedic Surgery | DX: S61.451A Open bite of right hand, initial encounter (principal); W54.0XXA Bitten by dog, initial encounter; E11.40 Type 2 diabetes mellitus with diabetic neuropathy, unspecified; Z79.4 Long term (current) use of insulin | CPT/HCPCS: 99201; 99212 ==

== ENCOUNTER 2019-03-06 09:31 | Outpatient (CLI) | payer MEDICARE, SELFPAY ==
--- NOTE | 2019-03-06 09:55 | DI.RAD_ITS ---
SYMPTOM/DIAGNOSIS: PAIN RIGHT FOOT: The bony structures and joint spaces appear intact. There is an 11 mm. calcaneal spur and prominent spurring is noted at the insertion of the Achilles aponeurosis on the calcaneus.
== END 2019-03-06 09:51 ==
PROVIDERS: PCP Family Medicine; Referring Provider Family Medicine; Visit Provider Orthopaedic Surgery
DX: M79.671 Pain in right foot (principal); M25.871 Other specified joint disorders, right ankle and foot
CPT/HCPCS: 99213; 99214; 73630

== ENCOUNTER → 2019-03-06 09:42 | Outpatient (BNVA) | payer MEDICARE, SELFPAY | PROVIDERS: PCP Family Medicine; Referring Provider Family Medicine; Visit Provider Orthopaedic Surgery | DX: M79.671 Pain in right foot; M25.871 Other specified joint disorders, right ankle and foot ==

== ENCOUNTER 2019-03-13 10:08 | Outpatient (CLI) | payer MEDICARE, SELFPAY ==
[2019-03-13 12:36] LABS: Hemoglobin A1C 7.2 % (4.5-6.2)
[2019-03-13 13:09] LABS: CREATININE 0.75 mg/dL (0.55-1.02); Potassium 4.6 mmol/L (3.5-5.1); TSH (W/Ref FT4) 0.36 uIU/mL (0.358-3.74)
== END 2019-03-13 10:28 ==
PROVIDERS: PCP Family Medicine; Visit Provider Family Medicine
DX: E11.9 Type 2 diabetes mellitus without complications (principal); E03.9 Hypothyroidism, unspecified
CPT/HCPCS: 36415; 82565; 83036; 84132; 84443

== ENCOUNTER 2019-03-21 00:48 | Outpatient (CLI) | payer MEDICARE, SELFPAY ==
--- NOTE | 2019-03-21 11:53 | DI.MRI_ITS ---
SYMPTOM/DIAGNOSIS: RT MEDIAL SESAMOIDITIS MRI OF RIGHT FOOT: MRI of the right foot was performed concentrating on the first metatarsal phalangeal joint. At the first metatarsal phalangeal joint there is a small effusion. There is normal marrow signal in the first metatarsal and the proximal and distal phalanges of the great toe. There is also normal signal seen in both the medial and lateral sesamoids adjacent to the first metatarsal head. No findings to suggest an occult fracture are appreciated. There is subcutaneous edema seen at the plantar aspect of the foot at the level of the first metatarsal phalangeal joint. There also appears to be a heterogeneous but predominantly hyperintense focus measuring 0.8 x 0.9 x 0.9 cm along the plantar medial aspect of the first metatarsal phalangeal joint. It is superficial to the bones and the ligaments and tendons. It lies in a subcutaneous location. There are mild degenerative changes seen in several joints of the foot identified. No tendon abnormality is appreciated. IMPRESSION: 1. Subcutaneous edema along the plantar and medial aspect of the foot adjacent to the first metatarsal phalangeal joint. A small focal fluid collection is seen measuring 0.9 cm maximally. This may represent a hematoma or phlegmon. Unremarkable sesamoid bones adjacent to the first metatarsal head. 2. Small first MTP joint effusion 3. Degenerative changes of the foot.
--- NOTE | 2019-03-21 16:57 | DI.VRAD_ITS ---
EXAM: MR Right Lower Extremity Without Contrast, Foot EXAM DATE/TIME: 03/21/2019 11:50 AM CLINICAL HISTORY: 73 years old, female; Pain; Other: R medial sesamoiditis; Additional info: Foot. Pain at first metatarsal phalangeal joint. TECHNIQUE: Imaging protocol: MR of the Right foot without intravenous contrast. COMPARISON: No relevant prior studies available. FINDINGS: There is focal subcutaneous edema along the plantar aspect of the foot at the level of the first metatarsal head. In this region, there is a small heterogeneous but predominantly high T2 signal focus measuring approximately 8 x 9 x 9 mm. This could represent a hematoma or phlegmon. The medial and lateral hallux sesamoids are normal in signal, and there is no evidence of injury to the plantar plate. There is a small effusion of the first metatarsophalangeal joint. The joint spaces are normally aligned. Mild osteophyte formation is present about multiple joints, including the first metatarsophalangeal joint. A small degenerative cystic focus is present in the medial hallux sesamoid. The bone marrow is otherwise normal in signal. There is no significant tendon abnormality no peritendinous collection. IMPRESSION: 1. Focal subcutaneous edema along the plantar aspect of the foot at the level of the first metatarsal head, where there is a small heterogeneous focus measuring up to 9 mm, which may represent hematoma or phlegmon. 2. Unremarkable hallux sesamoids. 3. Small nonspecific effusion of the first metatarsophalangeal joint. 4. Mild degenerative changes, including at the first metatarsophalangeal joint. Dictated and Authenticated by: Juice Morris MD. Ordering:KASSI Hanson MD
== END 2019-03-21 01:08 ==
PROVIDERS: PCP Family Medicine; Visit Provider Orthopaedic Surgery
DX: M25.871 Other specified joint disorders, right ankle and foot (principal); M25.48 Effusion, other site; M19.071 Primary osteoarthritis, right ankle and foot; R60.9 Edema, unspecified
CPT/HCPCS: 73718

== ENCOUNTER → 2019-03-26 10:31 | Outpatient (BNVA) | payer MEDICARE, SELFPAY | PROVIDERS: PCP Family Medicine; Referring Provider Family Medicine; Visit Provider Orthopaedic Surgery | DX: M25.871 Other specified joint disorders, right ankle and foot (principal); E11.9 Type 2 diabetes mellitus without complications; Z79.4 Long term (current) use of insulin | CPT/HCPCS: 99213 ==

== ENCOUNTER → 2019-05-21 08:51 | Outpatient (BNVA) | payer MEDICARE, SELFPAY | PROVIDERS: PCP Family Medicine; Referring Provider Family Medicine; Visit Provider Orthopaedic Surgery | DX: M25.871 Other specified joint disorders, right ankle and foot (principal) | CPT/HCPCS: 99213 ==

== ENCOUNTER 2019-06-04 01:04 | Outpatient (CLI) | payer MEDICARE, SELFPAY ==
--- NOTE | 2019-06-04 11:54 | DI.MAMMO_ITS ---
SYMPTOM/DIAGNOSIS: SCREENING, Z12.31 MAMMOGRAMS: Mammograms were interpreted according to the usual protocol including computer analysis with CAD system, tomosynthesis and C view imaging. Comparison is made with exams from [id number]. The breasts are composed of scattered fibroglandular densities, breast density, Category B. No suspicious masses or suspicious microcalcifications are seen. There has been no significant change. IMPRESSION: Category 1, negative mammogram. Yearly screening mammography is recommended. [facility] ASSESSMENT OF FINDINGS: Negative. Category 1. Patient will receive a letter notifying them of these results. BI-RADS category B. There are scattered areas of fibroglandular density.
== END 2019-06-04 01:24 ==
PROVIDERS: PCP Family Medicine; Visit Provider Family Medicine
DX: Z12.31 Encounter for screening mammogram for malignant neoplasm of breast (principal)
CPT/HCPCS: 77063; 77067

== ENCOUNTER 2019-09-11 10:56 | Outpatient (CLI) | payer MEDICARE, OTHER, SELFPAY ==
--- NOTE | 2019-09-11 11:06 | DI.RAD_ITS ---
EXAM: XR HIP LT COMPLETE AP PELVIS INDICATION: S/P LEFT HIP REPLACEMENT 2014 M25.552 PAIN LT HIP. TECHNIQUE: 2D digital imaging was performed. FINDINGS: There has been no change in the alignment of the left total hip prosthesis. Heterotopic calcificatio ns are again noted above the greater trochanter. No suspicious bony lucencies are identified. Right hip shows moderate degenerative changes. Degenerative changes are also noted in the lower lumbar sp ine. IMPRESSION: Stable appearance of left hip prosthesis.
== END 2019-09-11 11:16 ==
PROVIDERS: PCP Family Medicine; Visit Provider Family Medicine
DX: M25.552 Pain in left hip (principal); Z96.642 Presence of left artificial hip joint; M16.11 Unilateral primary osteoarthritis, right hip; E11.9 Type 2 diabetes mellitus without complications
CPT/HCPCS: 36415; 73502; 83036

== ENCOUNTER 2019-11-05 11:30 | Outpatient (CLI) | payer MEDICARE, OTHER, SELFPAY ==
--- NOTE | 2019-11-05 11:30 | DI.RAD_ITS ---
EXAM: XR LUMBAR SPINE AP, LAT INDICATION: pain COMPARISON: LUMBAR SPINE COMPLETE from 02/10/2009 CHEST 2 VIEWS PA,LAT from 03/01/2018 CHEST 2 VIEWS PA,LAT from 03/01/2018 TECHNIQUE: 2D digital imaging was performed. FINDINGS: There is mild anterior wedging of the L1 vertebral body at the inferior endplate. This appears uncha nged when compared the previous chest x-ray from 2018. The remaining vertebral bodies are well maint ained in height. No spondylolysis or spondylolisthesis is seen. There is multilevel disc space narr owing and endplate osteophyte formation. The findings are most severe at L4-5. Facet degenerative c hanges are most prominent at L4-5 and L5-S1. There is no significant scoliosis. Surgical clips are noted in the right upper quadrant. IMPRESSION: Stable mild L1 compression fracture. Degenerative changes greatest at L4-5 and L5-S1.
== END 2019-11-05 11:50 ==
PROVIDERS: PCP Family Medicine; Referring Provider Family Medicine; Visit Provider Orthopaedic Surgery
DX: M54.5 Low back pain (principal); M51.37 Other intervertebral disc degeneration, lumbosacral region; M25.552 Pain in left hip; M47.816 Spondylosis without myelopathy or radiculopathy, lumbar region; Z96.642 Presence of left artificial hip joint; E11.9 Type 2 diabetes mellitus without complications; Z79.4 Long term (current) use of insulin
CPT/HCPCS: 99201; 99213; 72100

== ENCOUNTER → 2019-12-17 10:50 | Outpatient (BNVA) | payer MEDICARE, OTHER, SELFPAY | PROVIDERS: PCP Family Medicine; Referring Provider Family Medicine; Visit Provider Orthopaedic Surgery | DX: M54.5 Low back pain (principal); M47.816 Spondylosis without myelopathy or radiculopathy, lumbar region; E11.40 Type 2 diabetes mellitus with diabetic neuropathy, unspecified; Z79.4 Long term (current) use of insulin; Z96.652 Presence of left artificial knee joint | CPT/HCPCS: 99213 ==

== ENCOUNTER 2019-12-19 11:22 | Outpatient (CLI) | payer MEDICARE, OTHER, SELFPAY ==
[2019-12-19 12:58] LABS: Hemoglobin A1C 8.3 % (3.8-5.6)
[2019-12-19 13:07] LABS: TSH (W/Ref FT4) 1.42 uIU/mL (0.36-3.74)
== END 2019-12-19 11:42 ==
PROVIDERS: PCP Family Medicine; Visit Provider Family Medicine
DX: E03.9 Hypothyroidism, unspecified (principal); R73.9 Hyperglycemia, unspecified
CPT/HCPCS: 36415; 83036; 84443

== ENCOUNTER 2020-03-24 08:13 | Outpatient (CLI) | payer MEDICARE, OTHER, SELFPAY ==
[2020-03-26 07:33] LABS: COVID-19 RT-PCR Result NEGATIVE (Negative)
== END 2020-03-24 08:33 ==
PROVIDERS: PCP Family Medicine; Visit Provider Family Medicine
DX: Z03.818 Encounter for observation for suspected exposure to other biological agents ruled out (principal)
CPT/HCPCS: U0003

== ENCOUNTER 2020-04-09 02:02 | Outpatient (CLI) | payer MEDICARE, OTHER, SELFPAY ==
[2020-04-09 09:38] LABS: Hemoglobin A1C 7.6 % (3.8-5.6)
[2020-04-09 09:45] LABS: CREATININE 0.83 mg/dL (0.55-1.02); Potassium 3.6 mmol/L (3.5-5.1)
== END 2020-04-09 02:22 ==
PROVIDERS: PCP Family Medicine; Visit Provider Family Medicine
DX: E11.9 Type 2 diabetes mellitus without complications (principal); E73.9 Lactose intolerance, unspecified
CPT/HCPCS: 36415; 82565; 83036; 84132

== ENCOUNTER 2020-06-18 02:34 | Outpatient (CLI) | payer MEDICARE, OTHER, SELFPAY ==
--- NOTE | 2020-06-18 10:19 | DI.MAMMO_ITS ---
EXAM: MAMMO SCREENING CLINICAL HISTORY: screening,Z12.39 TECHNIQUE: Mammograms were interpreted according to the usual protocol including computer analysis w [employer] CAD system, tomosynthesis and C-view imaging. COMPARISON: 2009 through 2018 FINDINGS: The breasts are composed of scattered fibroglandular densities, Breast Density category B. No suspicious masses or suspicious microcalcifications are seen. No skin thickening or abnormal axillary lymph nodes are seen. There has been no significant change from prior exams. There is motion on the right CC view and bot h the left CC and left MLO views. Patient should return for repeat imaging at no additional charge. IMPRESSION: BI-RADS Category 0 - Assessment Incomplete: Need additional imaging evaluation Breast Density - Category B, scattered fibroglandular densities. A negative radiographic report should not delay biopsy if a dominant or clinically suspicious mass is present. Up to ten percent of cancers are not identified on mammography. A negative report may reinforce clinical impression. Adenosis and dense breasts may obscure an underlying neoplasm. False positive reports average 6 to 10%. Patient will receive a letter notifying them of these results.
== END 2020-06-18 02:54 ==
PROVIDERS: PCP Family Medicine; Visit Provider Family Medicine
DX: Z12.31 Encounter for screening mammogram for malignant neoplasm of breast (principal); R92.2 Inconclusive mammogram
CPT/HCPCS: 77063; 77067

== ENCOUNTER 2020-06-29 01:11 | Outpatient (CLI) | payer MEDICARE, OTHER, SELFPAY ==
--- NOTE | 2020-06-29 | DI.MAMMO_ITS ---
EXAM: MG MAMMO SCREEN CALL BACK BI CLINICAL HISTORY: F/U MAMMO, MOTION RT CC AND BOTH CC AND MLO LT TECHNIQUE: Bilateral full field digital CC and MLO mammographic images were obtained with 3D tomosyn thesis and utilizing computer aided detection (CAD). COMPARISON: Available for comparison. FINDINGS: Masses/Architectural Distortion: None seen. Microcalcifications: No suspicious pleomorphic-type are seen. Skin Thickening/Nipple Retraction: None. IMPRESSION: 1. No significant interval change with no specific features of malignancy noted. 2. Unless there is more urgent need, screening mammography is recommended, as per [employer] guidelines. BI-RADS Category 1 - Negative Breast Density - Category B - Scattered areas of fibroglandular density A negative radiographic report should not delay biopsy if a dominant or clinically suspicious mass is present. Up to ten percent of cancers are not identified on mammography. A negative report may reinforce clinical impression. Adenosis and dense breasts may obscure an underlying neoplasm. False positive reports average 6 to 10%. Patient will receive a letter notifying them of these results.
== END 2020-06-29 01:31 ==
PROVIDERS: PCP Family Medicine; Visit Provider Family Medicine
DX: R92.2 Inconclusive mammogram (principal)
CPT/HCPCS: 77063; 77067

== ENCOUNTER 2020-12-07 03:07 | Outpatient (CLI) | payer MEDICARE, OTHER, SELFPAY ==
[2020-12-07] MEDS: Normal Saline Flush 10 ML SYR IVP (14:27)
[2020-12-07] MEDS: Normal Saline 500 ML 30 ML IV (14:28)
[2020-12-07 14:36] VITALS: BP 115/81; PULSE 79; RESP 18; TEMP 37; O2SAT 95
[2020-12-07 14:40] VITALS: BP 131/78; PULSE 82; RESP 19; TEMP 37.3; O2SAT 94
[2020-12-07 14:48] VITALS: BP 134/90; PULSE 83; RESP 20; TEMP 36.8; O2SAT 93
[2020-12-07 15:21] VITALS: BP 128/86; PULSE 76; RESP 20; TEMP 36.8; O2SAT 94
[2020-12-07 15:50] VITALS: BP 136/88; PULSE 78; RESP 18; TEMP 36.9; O2SAT 92
== END 2020-12-07 03:08 | disposition home or self-care (01) ==
LOC: INF 03:07
PROVIDERS: PCP Family Medicine; Visit Provider Family Medicine
DX: U07.1 COVID-19 (principal)
CPT/HCPCS: 96365

== ENCOUNTER 2021-05-26 02:41 | Outpatient (CLI) | payer MEDICARE, OTHER, SELFPAY ==
[2021-05-26 09:13] LABS: Hemoglobin A1C 6.7 % (<5.7)
[2021-05-26 09:17] LABS: Iron 59 ug/dL (50-170); Total Iron Binding Capacity 321 ug/dL (250-450); Transferrin Sat 18 % (15-50)
[2021-05-26 09:23] LABS: CREATININE 0.8 mg/dL (0.55-1.02); Potassium 4.2 mmol/L (3.5-5.1); TSH (W/Ref FT4) 0.42 uIU/mL (0.36-3.74)
== END 2021-05-26 02:42 | disposition home or self-care (01) ==
PROVIDERS: PCP Family Medicine; Visit Provider Family Medicine
DX: E03.9 Hypothyroidism, unspecified (principal); D64.9 Anemia, unspecified; E11.65 Type 2 diabetes mellitus with hyperglycemia; I10 Essential (primary) hypertension
CPT/HCPCS: 36415; 82565; 83036; 83540; 83550; 84132; 84443

== ENCOUNTER 2021-08-11 18:06 | Outpatient (REF) | payer MEDICARE, OTHER, SELFPAY ==
[2021-08-13 14:23] LABS: COVID-19 RT-PCR UVMMC Result Negative (Negative)
== END 2021-08-11 18:07 | disposition home or self-care (01) ==
LOC: LBN 18:06
PROVIDERS: PCP Family Medicine; Visit Provider Family Medicine
DX: Z20.822 Contact with and (suspected) exposure to COVID-19 (principal)
CPT/HCPCS: U0003; U0005

== ENCOUNTER 2021-09-14 19:33 | Outpatient (REF) | payer MEDICARE, OTHER, SELFPAY ==
[2021-09-16 16:20] LABS: COVID-19 RT-PCR UVMMC Result Negative (Negative)
== END 2021-09-14 19:34 | disposition home or self-care (01) ==
LOC: LBN 19:33
PROVIDERS: PCP Family Medicine; Visit Provider Family Medicine
DX: Z20.822 Contact with and (suspected) exposure to COVID-19 (principal)
CPT/HCPCS: U0003

== ENCOUNTER 2021-11-23 19:53 | Outpatient (CLI) | payer MEDICARE, OTHER, SELFPAY ==
--- NOTE | 2021-11-23 14:30 | DI.RAD_ITS ---
Exam(s) XR HIP RT COMPLETE AP PELVIS EXAM: XR HIP RT COMPLETE AP PELVIS CLINICAL HISTORY: rt hip pain M25.559 PAIN IN HIP G89.29 CHRONIC PAIN. TECHNIQUE: 2D digital imaging was performed. COMPARISON: CR XR HIP LT COMPLETE AP PELVIS from 09/11/2019 FINDINGS: No evidence of pelvic fracture. Advanced disc space narrowing in lower lumbar spine again noted. Left hip prosthesis abundant dystrophic calcification is again noted. There are Right hip exhibits mild degenerative changes without significant radiographic change compared to Dece mb 2019. Bone density is normal. No osseous lesions IMPRESSION: Mild degenerative changes in the right hip. Exhibiting minimal change from September 2019. Left hip prosthesis again noted. DATA REPOSITORY: RADIATION DOSE DELIVERED:
== END 2021-11-23 20:13 ==
PROVIDERS: PCP Family Medicine; Visit Provider Family Medicine
DX: M25.551 Pain in right hip (principal); M16.11 Unilateral primary osteoarthritis, right hip; Z96.642 Presence of left artificial hip joint; G89.29 Other chronic pain
CPT/HCPCS: 73502

== ENCOUNTER → 2021-12-31 13:25 | Outpatient (BNVA) | payer MEDICARE, OTHER, MEDICAID, SELFPAY | PROVIDERS: PCP Family Medicine; Referring Provider Family Medicine; Visit Provider Physical Therapy Assistant | DX: Z12.11 Encounter for screening for malignant neoplasm of colon (principal); Z86.010 Personal history of colon polyps; Z80.0 Family history of malignant neoplasm of digestive organs ==

== ENCOUNTER → 2022-01-24 01:33 | Outpatient (CLI) | payer MEDICARE, MEDICAID, OTHER, SELFPAY ==
--- NOTE | 2022-01-24 15:06 | DI.US_ITS ---
APPROVED REPORT EXAM: Comprehensive 2D, Doppler, and color-flow Echocardiogram Patient Location: Out-Patient Link Assembler: Corie Tom RDCS (AE) Indications: New murmur, Pre procedural echo Other Information Study Quality: Adequate Conclusion Normal left ventricular wall thickness and chamber size. Estimated ejection fraction is 55 to 60%. Wall motion is normal Normal right ventricular size and systolic function Both atria are normal in size The aortic valve is sclerotic and probably trileaflet. There is mild aortic stenosis. Peak gradient is 25, mean is 15 mmHg. Calculated aortic valve area is 1.33 cm??. There is trace aortic regurgita tion Mild mitral annular calcification, mild mitral regurgitation Normal tricuspid valve with mild regurgitation. Estimated right ventricular systolic pressure is 28 mmHg Wall motion Left Ventricle The left ventricle is normal size. The left ventricular systolic function is normal. The left ventric ular ejection fraction is within the normal range. There is normal left ventricular wall thickness. T here is normal LV segmental wall motion. There is no ventricular septal defect visualized. LVEF is 58 %. Right Ventricle The right ventricle is normal size. The right ventricular systolic function is normal. The RVSP is 28 .4 mmHg. Atria The left atrium size is normal. The right atrium size is normal. The interatrial septum is intact wit h no evidence for an atrial septal defect. Aortic Valve The aortic valve is sclerotic The aortic valve is probably trileaflet Mild aortic stenosis. Peak aort ic valve gradient is 24.9mmHg. Highest mean aortic valve gradient is 15.1mmHg. Calculated LEONA by the continuity equation is 1.33cm2. Trace aortic regurgitation. Mitral Valve Mild mitral annular calcification. No evidence of mitral valve stenosis. Mild mitral regurgitation. Tricuspid Valve The tricuspid valve is normal in structure. There is no tricuspid valve stenosis. Mild tricuspid regu rgitation. Pulmonic Valve The pulmonary valve is normal in structure. There is no pulmonic valvular stenosis. Trace pulmonic re gurgitation. Great Vessels The aortic root is normal in size. The ascending aorta is normal in size. IVC is normal in size and c ollapses >50% with inspiration. Pericardium There is no pericardial effusion. 2D Dimensions IVSD d PLAX 0.93 cm F: 0.6-1.0 LV Vol A2C d MOD 63.2 mL LVPW d PLAX 0.88 cm F: 0.6 - 1.0 LV Vol A4C d MOD 58.8 mL LVID d PLAX 3.90 cm F: 3.8 - 5.2 LA vol/ BSA A4C s A-L 18.8 mL/m2 LVDs 2.70 cm F: 2.2 - 3.5 LA Area A4C s MOD 13.16 cm2 Ao Root d 2.46 cm F: 2.7 - 3.3 LV EF A4C MOD 58.9 % RA Area A4C 11.84 cm2 LV EF A2C MOD 57.9 % RA Vol/ BSA A4C s A-L 14.8 mL/m2 LV EF Biplane MOD 57.0 % Ao Asc Diam d 3.27 cm F: 2.3 - 3.1 SV 35.05 mL LV EF Teichholz 58.0 % SV Index 21.22 mL/m2 LVEF (Zapata's) 56.96 % F: 54 - 74 LV Volume 49.40 mL F: 46 - 106 LV Volume Index 29.93 mL/m2 F: 29 - 61 LV Vol Biplane MOD 61.5 mL FS 30.05 % M-Mode TAPSE 2.29 cm (M/F) >1.7 LV Diastology MV E' medial 0.091 (>0.07 m/s) E/A Ratio 0.6 LV E/e MED 6.20 (<14) MV E Vmax 0.57 (0.4-1.3 m/s) MV E' lateral 0.075 (>0.1 m/s) MV A Vmax 1.00 (0.4-1.3 m/s) LV E/e LAT 7.60 (<14) MV E/A Ratio 0.56 MV E/E' medial 6.25 MV E/E' lateral 7.61 Aortic Valve LVOT Area 3.17 cm2 AoV Area Vmax 1.33 cm2 LVOT Vmax 1.05 m/s AoV Area/ BSA (Vmax) 0.81 cm2/m2 LVOT Mean Frankie. 0.70 m/s LEONA Mean Frankie. 1.19 cm2 LVOT Peak Grad 4.4 mmHg LEONA Mean Frankie. Index 0.72 cm2/m2 LVOT Mean Grad 2.3 mmHg LVOT VTI 0.199 m LVOT Diam s 2.00 cm AoV Vmax 2.49 m/s Velocity Ratio 0.42 AoV Mean Frankie. 1.86 m/s AoV Peak Grad 24.9 mmHg LVOT SV 63.08 mL AoV Mean Grad 15.1 mmHg AoV VTI 0.479 m AoV Area VTI 1.32 cm2 AoV Area/ BSA (VTI) 0.80 cm/m2 Mitral Valve MV DT 262 (160-240 msec) MV PHT 76 msec MV Area PHT 2.89 cm2 MV VTI 0.204 m MV Area VTI 3.09 (4.0-6.0 cm2) Pulmonary Valve PV Vmax 0.99 (0.5-1.5 m/s) RVOT Peak Gr. 2.51 mmHg PV Peak Grad 3.9 mmHg RVOT Mean Gr. 1.15 mmHg PV Mean Grad 2.1 mmHg RVOT VTI 0.153 m PV VTI 0.182 m RVOT Vmax 0.79 m/s Tricuspid Valve TR Peak Grad 25.3 mmHg TR Vmax 2.52 m/s RA Pressure 3.00 mmHg RVSP (TR) 28.4 mmHg
== END ==
PROVIDERS: PCP Family Medicine; Visit Provider Physical Therapy Assistant
DX: R01.1 Cardiac murmur, unspecified (principal); Z01.818 Encounter for other preprocedural examination
CPT/HCPCS: 93306

== ENCOUNTER 2022-04-19 02:59 | Outpatient (CLI) | payer MEDICARE, OTHER, SELFPAY ==
[2022-04-19 16:48] LABS: CREATININE 0.8 mg/dL (0.55-1.02); Calculated LDL 80 mg/dL (<100); Cholesterol 170 mg/dL (<200); HDL Cholesterol 63 mg/dL (40-60); Potassium 3.8 mmol/L (3.5-5.1); TSH (W/Ref FT4) 1.09 uIU/mL (0.36-3.74); Triglyceride 139 mg/dL (<150)
== END 2022-04-19 03:00 | disposition home or self-care (01) ==
PROVIDERS: PCP Family Medicine; Visit Provider Family Medicine
DX: I10 Essential (primary) hypertension (principal); E03.9 Hypothyroidism, unspecified; E78.5 Hyperlipidemia, unspecified
CPT/HCPCS: 36415; 80061; 82565; 84132; 84443

== ENCOUNTER → 2022-06-08 02:10 | Outpatient (CLI) | payer MEDICARE, OTHER, SELFPAY ==
--- NOTE | 2022-06-08 08:15 | DI.MAMMO_ITS ---
Exam(s) MAMMO SCREENING EXAM: MAMMO SCREENING CLINICAL HISTORY: screening, Z12.39. TECHNIQUE: Bilateral full field digital CC and MLO mammographic images were obtained with 3D tomosyn thesis and utilizing computer aided detection (CAD). COMPARISON: Prior mammograms were reviewed, the most recent being . FINDINGS: There are no new spiculated masses nor malignant appearing microcalcification groups. There is no significant architectural distortion nor skin thickening-retraction. IMPRESSION: No radiographic evidence of malignancy. BI-RADS Category 1 - Negative Breast Density - Category B - Scattered areas of fibroglandular density Breast density Category C or D implies that the patient has dense breast tissue. Dense breast tissue can make it harder to find cancer on a mammogram. Dense breast tissue is also associated with an incr eased risk of breast cancer. This information about the result of the mammogram report was provided to the patient to raise their awareness. Use this report when you speak with the patient about their risks for breast cancer, which includes their family history. At that time, you may recommend additional screening tests (Ultrasoun d or MRI) as these tests may add significant information. A negative radiographic report should not delay biopsy if a dominant or clinically suspicious mass is present. Up to ten percent of cancers are not identified on mammography. A negative report may reinforce clinical impression. Adenosis and dense breasts may obscure an underlying neoplasm. False positive reports average 6 to 10%. Patient will receive a letter notifying them of these results.
== END ==
PROVIDERS: PCP Family Medicine; Visit Provider Family Medicine
DX: Z12.31 Encounter for screening mammogram for malignant neoplasm of breast (principal)
CPT/HCPCS: 77063; 77067

== ENCOUNTER 2022-09-26 13:46 | Outpatient (CLI) | payer MEDICARE, OTHER, SELFPAY ==
[2022-09-26 10:56] LABS: HCT 44.8 % (36.0-46.0); HGB 14.4 g/dL (11.2-15.7); MCH 30.5 pg (27.0-33.0); MCHC 32.1 % (32.0-36.0); MCV 95 fL (80-95); MPV 10.7 fL (8.0-11.0); Platelet Count 236 10^3/uL (130-400); RBC 4.72 10^6/uL (3.93-5.22); RDW-SD 45.7 fL; WBC 6.03 10^3/uL (4.4-10.8)
== END 2022-09-26 13:47 | disposition home or self-care (01) ==
LOC: LBO 13:48
PROVIDERS: PCP Family Medicine; Visit Provider Family Medicine
DX: R53.83 Other fatigue (principal)
CPT/HCPCS: 36415; 85027

== ENCOUNTER 2022-10-19 12:34 | Outpatient (CLI) | payer MEDICARE, OTHER, SELFPAY ==
--- NOTE | 2022-10-19 12:55 | DI.RAD_ITS ---
Exam(s) XR LUMBAR SPINE COMPLETE EXAM: XR LUMBAR SPINE COMPLETE CLINICAL HISTORY: DORSALGIA-M54.9 LOW BACK PAIN; KNOWN DJD. TECHNIQUE: 2D digital imaging was performed. Five views. COMPARISON: CR XR HIP LT COMPLETE AP PELVIS from 09/11/2019 CR XR LUMBAR SPINE AP, LAT from 11/05/2019 FINDINGS: BONES: Left hip prosthesis. Stable anterior wedging of the L1 vertebral body. Degenerative disc remi nges and facet degenerative changes are noted throughout, greatest at L4-5 and L5-S1. DISKS: Intervertebral disc spaces are maintained. ALIGNMENT: Lumbar spinal alignment is within normal limits. SOFT TISSUE: Surgical clips right upper quadrant. IMPRESSION: Stable L1 compression fracture. Stable advanced degenerative changes. DATA REPOSITORY: RADIATION DOSE DELIVERED:
== END 2022-10-19 12:54 ==
LOC: DI 12:34
PROVIDERS: PCP Family Medicine; Visit Provider Family Medicine
DX: M47.816 Spondylosis without myelopathy or radiculopathy, lumbar region (principal); S32.010A Wedge compression fracture of first lumbar vertebra, initial encounter for closed fracture; X58.XXXA Exposure to other specified factors, initial encounter
CPT/HCPCS: 72110

== ENCOUNTER 2022-11-14 01:57 | Outpatient (CLI) | payer MEDICARE, SELFPAY ==
--- NOTE | 2022-11-14 08:15 | DI.MRI_ITS ---
Exam(s) MR LUMBAR SPINE WO EXAM: MR LUMBAR SPINE WO CLINICAL HISTORY: low back pain,m54.50. TECHNIQUE: Multiplanar multisequence MRI of the Lumbar spine was performed. COMPARISON: CR XR LUMBAR SPINE COMPLETE from 10/19/2022 FINDINGS: Bones: The last intervertebral disc space is designated the L5/S1 level for the numbering purpose of this examination. The vertebral body heights are well maintained. Alignment is satisfactory. Randy ioma or fatty rest are seen in the lower thoracic and lumbar spine. The largest is in L2. There are degenerative endplate signal changes at multiple levels in the lumbar spine. There are Schmorl's no skyla seen with the largest in the inferior endplate of L1. Cord: The conus tip ends at the L1 level. It is of normal size and signal intensity. T12-L1: No disc herniations or bulges are present. No central spinal canal or neural foraminal stenos is. L1-2: No disc herniations or bulges are present. No central spinal canal or neural foraminal stenosis . L2-3: There is a diffuse disc bulge. No significant central spinal canal stenosis is seen. There is no right neural foraminal stenosis is mild left neural foraminal stenosis. L3-4: There is a diffuse disc bulge. There are degenerative changes of the facets. No significant c entral spinal canal stenosis is seen. No significant neural foraminal stenosis is present. L4-5: There is a diffuse disc bulge present. There are degenerative changes of the facets. There is mild narrowing of the transverse diameter of the central spinal canal. There is marked right and mi ld left neural foraminal stenosis. L5-S1: There is a mild diffuse disc bulge. There are hypertrophic changes of the facets, right great er than left. No significant central spinal canal stenosis is seen. There is marked right neural fo raminal stenosis and moderate left neural foraminal stenosis. Soft tissues: The visualized SI joints and sacrum are well maintained. The paraspinal soft tissues ar e unremarkable. Visualized abdominal organs: There are bilateral simple renal cysts. The largest is in the right kid matry and measures 2.1 cm. IMPRESSION: 1. Multilevel degenerative changes in the lumbar spine are present. 2. Multilevel central spinal canal neural foraminal stenosis is present. The findings are most marke d at the right neural foramen at L4-5 and L5-S1. DATA REPOSITORY:
== END 2022-11-14 02:17 ==
LOC: DI 01:57
PROVIDERS: PCP Family Medicine; Visit Provider Family Medicine
DX: M54.59 Other low back pain (principal); M51.37 Other intervertebral disc degeneration, lumbosacral region; M99.53 Intervertebral disc stenosis of neural canal of lumbar region
CPT/HCPCS: 72148

== ENCOUNTER 2022-11-24 13:51 | Outpatient (REF) | payer MEDICARE, SELFPAY ==
[2022-11-24 22:01] LABS: COMMENT (LAB VIEW ONLY) 76.35 mg/dL; Microalb ug/mg Crea 9.8 ug/mg Cr
== END 2022-11-24 13:52 | disposition home or self-care (01) ==
LOC: LBN 13:51
PROVIDERS: PCP Family Medicine; Visit Provider Family Medicine
DX: E11.9 Type 2 diabetes mellitus without complications (principal)
CPT/HCPCS: 82043; 82570

== ENCOUNTER 2022-12-25 20:01 | Emergency (ER) | payer MEDICARE, SELFPAY ==
--- NOTE | 2022-12-25 20:00 | DI.RAD_ITS ---
Exam(s) XR HUMERUS LT EXAM: XR HUMERUS LT CLINICAL HISTORY: Fall. TECHNIQUE: 2D digital imaging was performed. COMPARISON: No exams were available for comparison FINDINGS: Two views: No evidence of fracture nor dislocation. Bone density age-appropriate. No osseous lesions. No radi opaque foreign body IMPRESSION: No fracture evident. DATA REPOSITORY: RADIATION DOSE DELIVERED:
--- NOTE | 2022-12-25 20:00 | DI.RAD_ITS ---
Exam(s) XR KNEE LT 3V AP,LAT,TIM EXAM: XR KNEE LT 3V AP,LAT,TIM CLINICAL HISTORY: Fall. TECHNIQUE: 2D digital imaging was performed. COMPARISON: No exams were available for comparison FINDINGS: 3 views No evidence of acute fracture or prominent joint. No obvious degenerative changes. No joint space narrowing. No osteophytes. On the medial aspect of the joint is a small calcific density off the upper aspect of the medial femo ral condyle. This is the attachment site of the medial collateral ligament. Correlation with area o f tenderness recommended and if clinically indicated can be further studied with MRI. IMPRESSION: Medial findings as described above. Clinically indicated follow-up MRI can be performed to determine if there is a true internal derangement tear. DATA REPOSITORY: RADIATION DOSE DELIVERED:
--- NOTE | 2022-12-25 20:00 | DI.RAD_ITS ---
Exam(s) XR SHOULDER LT COMPLETE 2+V EXAM: XR SHOULDER LT COMPLETE 2+V CLINICAL HISTORY: Fall. TECHNIQUE: 2D digital imaging was performed. COMPARISON: No exams were available for comparison FINDINGS: 3 views No evidence of acute fracture or dislocation or abnormal soft tissue calcifications. Minimal degener ative changes. Subacromial space unremarkable. AC joint and ipsilateral clavicle unremarkable. IMPRESSION: No significant osseous findings. DATA REPOSITORY: RADIATION DOSE DELIVERED:
[2022-12-25 20:09] VITALS: BP 145/84; PULSE 86; RESP 24; TEMP 36.8; O2SAT 96
--- NOTE | 2022-12-25 20:14 | W.ED.GENAD ---
Discharge Plan Disposition Patient Disposition: Home Discharge Details Clinical Impression: Fall, Other sprain of left shoulder joint, initial encounter Primary Care Provider: Jose Toth ED Provider: Vaishali Terrazas Home Meds and New Rx's Prescriptions: Continued acetaminophen 500 mg capsule 500 mg PO Q6H PRN (Reason: pain) Qty: 60 0RF Rx Instructions: Take 1 capsule every 6 hours as needed for pain methocarbamol 500 mg tablet 500 mg PO Q6H PRN (Reason: pain) Qty: 60 0RF Rx Instructions: Take 1 tab every 6 hours as needed for pain Jardiance 25 mg tablet 25 mg PO QAM Qty: 90 3RF levothyroxine 125 mcg capsule 125 mcg PO DAILY Qty: 90 3RF losartan 25 mg tablet 25 mg PO DAILY Qty: 90 3RF magnesium oxide [MagOx] 400 mg (241.3 mg magnesium) tablet 400 mg PO DAILY Qty: 90 3RF metformin 1,000 mg tablet 1,000 mg PO BID Qty: 180 4RF Rx Instructions: 1 TAB BID omeprazole 20 mg capsule,delayed release(DR/EC) 20 mg PO DAILY PRN (Reason: dyspepsia) Qty: 90 3RF Rx Instructions: 1 CAP DAILY (DME) pen needle, diabetic [Advocate Pen Needle] 31 gauge x 5/16 needle See Rx Instructions .ROUTE .MEDSUPPLY Qty: 400 3RF Rx Instructions: inject 4 x/day (DME) lancets 28 gauge misc 1 ea Intradermal 4-6X/DAY Qty: 550 4RF Rx Instructions: CONTOUR NEXT EZ LANCETS, NTROL, test qid gabapentin 100 mg capsule 200 mg PO HS Qty: 180 4RF escitalopram oxalate [Lexapro] 20 mg tablet 20 mg PO DAILY Qty: 90 3RF albuterol sulfate [ProAir HFA] 90 mcg/actuation HFA aerosol inhaler 2 puff Inhalation Q6H PRN Qty: 1 11RF fluticasone propionate [Flovent HFA] 220 mcg/actuation HFA aerosol inhaler 1 puff Inhalation BID PRN (Reason: sob) Qty: 12 5RF polyethylene glycol 3350 17 gram/dose powder 238 g PO ONCE Qty: 238 0RF Rx Instructions: take per colonoscopy instructions bisacodyl [Dulcolax (bisacodyl)] 5 mg tablet,delayed release (DR/EC) 5 mg PO ONCE Qty: 4 0RF Rx Instructions: take per colonoscopy instructions Trulicity 1.5 mg/0.5 mL pen injector 1.5 mg SC QWEEK Qty: 2 11RF Rx Instructions: 131 3dose increase 11/08/22 atorvastatin 10 mg tablet 10 mg PO DAILY Qty: 90 3RF (DME) Aerochamber Mini Spacer See Rx Instructions .ROUTE .MEDSUPPLY Qty: 1 0RF Rx Instructions: As directed insulin glargine [Lantus Solostar U-100 Insulin] 100 unit/mL (3 mL) insulin pen 10 - 50 unit subcut HS Qty: 45 3RF Rx Instructions: adjusting dose depending on blood sugar insulin aspart U-100 [Novolog FlexPen U-100 Insulin] 100 unit/mL (3 mL) insulin pen 1 - 30 unit subcut AC MDD 150 units Qty: 5 11RF Rx Instructions: sliding scale as directed Dx: E11.9 meloxicam 7.5 mg tablet 7.5 mg PO DAILY Qty: 30 3RF loratadine 10 mg tablet 10 mg PO DAILY PRN Qty: 90 3RF Rx Instructions: 1 TAB DAILY PRN (DME) OptiChamber Luana Lg Mask Spacer See Rx Instructions .ROUTE .MEDSUPPLY Qty: 1 0RF Rx Instructions: As directed fluticasone propionate 50 mcg/actuation spray,suspension 2 spray NS DAILY PRN (Reason: Nasal Congestion) Qty: 15.8 5RF trazodone 150 mg tablet 150 mg PO HS Qty: 90 3RF escitalopram oxalate 10 mg tablet 10 mg PO DAILY Qty: 90 3RF meclizine 25 mg tablet 12.5 - 25 mg PO TID PRN (Reason: dizziness) Qty: 90 3RF lorazepam 1 mg tablet 1 mg PO ONCE Qty: 1 0RF Rx Instructions: Take 1 hour prior to MRI (DME) Blood Glucose Test Strip 1 strip Miscellaneous 4-6X/DAY Qty: 360 4RF Rx Instructions: ONTOUR NEXT EZ, test QID Discharge Instructions Instructions: Fall Prevention for Older Adults (ED), Shoulder Sprain (ED) Additional Instructions: X-rays show no broken bones or fractures. Please use the lidocaine patch as directed. Wear the sling for the next couple days as needed for comfort. Please take the sling off after a couple of days. Please take Tylenol or Ibuprofen with food every 4-6 hours as needed for pain and swelling. Follow up with primary care provider in 3-5 days. Return to ED sooner if any worsening or concerns. Increase oral fluids. Referrals: Jose Toth MD [Primary Care Provider] - 5 days Medical Decision Making 77-year-old female here with left shoulder pain left knee pain status post mechanical fall down a couple of stairs which occurred approximately an hour prior to arrival. Patient reports that she did hit her head however no loss of consciousness. She does have a small hematoma noted to the left frontal scalp, no midline C-spine or T or L-spine tenderness with palpation. She is complaining of left shoulder pain. X-ray left shoulder humerus and left knee ordered. Tylenol 500 mg p.o. X-rays are showed no acute abnormality. Discussed this with patient. Patient was given a lidocaine patch, sling and instructed to rest ice take Tylenol ibuprofen as needed. She verbalized understanding. This text was generated using [employer] dictation system, please disregard any oddities of phrase or misspellings. HPI General Mode of arrival: ambulatory. Date/Time Provider Initiated Documentation: 12/25/22 20:06. Limitations to Documentation: no limitations. Information obtained by: patient, family and old records reviewed. HPI Narrative: 77-year-old female here with left shoulder pain left knee pain status post mechanical fall down a couple of stairs which occurred approximately an hour prior to arrival. Patient reports that she did hit her head however no loss of consciousness. She does have a small hematoma noted to the left frontal scalp, no midline C-spine or T or L-spine tenderness with palpation. She is complaining of left shoulder pain. She does have a past medical history of asthma,, hyperlipidemia, bronchitis, type 2 diabetes. She is alert and oriented x4 upon arrival. Related Data Home Medications Medication Instructions Recorded Confirmed inhalational spacing device #1 ea 05/28/19 12/25/22 (Aerochamber Mini) inhalat.spacing dev,large mask #1 ea 03/03/20 12/25/22 ([employer] with Large Mask) acetaminophen 500 mg capsule 500 mg PO Q6H PRN pain #60 caps 04/20/20 12/25/22 methocarbamol 500 mg tablet 500 mg PO Q6H PRN pain #60 tabs 04/20/20 12/25/22 fluticasone propionate 50 2 spray NS DAILY PRN Nasal 10/14/20 12/25/22 mcg/actuation nasal Congestion #15.8 mL spray,suspension bisacodyl 5 mg tablet,delayed 5 mg PO ONCE colonscopy bowel prep 12/31/21 12/25/22 release (Dulcolax (bisacodyl)) #4 tabs polyethylene glycol 3350 17 238 g PO ONCE colonoscopy prep 12/31/21 12/25/22 gram/dose oral powder #238 grams albuterol sulfate 90 mcg/actuation 2 puff inhalation Q6H PRN ##1 04/06/22 12/25/22 aerosol inhaler (ProAir HFA) empagliflozin 25 mg tablet 25 mg PO QAM #90 tabs 04/06/22 12/25/22 (Jardiance) escitalopram oxalate 20 mg tablet 20 mg PO DAILY #90 tab-caps 04/06/22 12/25/22 (Lexapro) fluticasone propionate 220 1 puff inhalation BID PRN sob #12 04/06/22 12/25/22 mcg/actuation HFA aerosol inhaler grams (Flovent HFA) gabapentin 100 mg capsule 200 mg PO HS #180 tab-caps 04/06/22 12/25/22 lancets 28 gauge #550 ea 04/06/22 12/25/22 levothyroxine 125 mcg capsule 125 mcg PO DAILY #90 caps 04/06/22 12/25/22 losartan 25 mg tablet 25 mg PO DAILY #90 tab-caps 04/06/22 12/25/22 magnesium oxide 400 mg (241.3 mg 400 mg PO DAILY #90 tab-caps 04/06/22 12/25/22 magnesium) tablet (MagOx) metformin 1,000 mg tablet 1,000 mg PO BID #180 tab-caps 04/06/22 12/25/22 omeprazole 20 mg capsule,delayed 20 mg PO DAILY PRN dyspepsia #90 04/06/22 12/25/22 release tab-caps pen needle, diabetic 31 gauge x #400 ea 04/06/22 12/25/22/16 (Advocate Pen Needle) insulin aspart U-100 100 unit/mL 1 - 30 unit (0.01 - 0.3 mL) subcut 06/29/22 12/25/22 (3 mL) subcutaneous pen (Novolog AC #5 mL FlexPen U-100 Insulin aspart) insulin glargine 100 unit/mL (3 10 - 50 unit (0.1 - 0.5 mL) subcut 06/29/22 12/25/22 mL) subcutaneous pen (Lantus HS #45 mL Solostar U-100 Insulin) trazodone 150 mg tablet 150 mg PO HS #90 tab-caps 07/26/22 12/25/22 escitalopram oxalate 10 mg tablet 10 mg PO DAILY #90 tabs 08/30/22 12/25/22 meclizine 25 mg tablet 12.5 - 25 mg PO TID PRN dizziness 09/28/22 12/25/22 #90 tab-caps lorazepam 1 mg tablet 1 mg PO ONCE #1 tab 10/19/22 12/25/22 atorvastatin 10 mg tablet 10 mg PO DAILY #90 tabs 11/08/22 12/25/22 dulaglutide 1.5 mg/0.5 mL 1.5 mg (0.5 mL) subcut QWEEK #2 mL 11/08/22 12/25/22 subcutaneous pen injector (Trulicity) loratadine 10 mg tablet 10 mg PO DAILY PRN #90 tab-caps 11/24/22 12/25/22 meloxicam 7.5 mg tablet 7.5 mg PO DAILY #30 tabs 11/24/22 12/25/22 blood sugar diagnostic (Blood #360 strips 12/12/22 12/25/22 Glucose Test strips) Previous Rx's Medication Instructions Recorded inhalational spacing device #1 ea 05/28/19 (Aerochamber Mini) inhalat.spacing dev,large mask #1 ea 03/03/20 [facility] Large Mask) acetaminophen 500 mg capsule 500 mg PO Q6H PRN pain #60 caps 04/20/20 methocarbamol 500 mg tablet 500 mg PO Q6H PRN pain #60 tabs 04/20/20 fluticasone propionate 50 2 spray NS DAILY PRN Nasal 10/14/20 mcg/actuation nasal Congestion #15.8 mL spray,suspension bisacodyl 5 mg tablet,delayed 5 mg PO ONCE colonscopy bowel prep 12/31/21 release (Dulcolax (bisacodyl)) #4 tabs polyethylene glycol 3350 17 238 g PO ONCE colonoscopy prep 12/31/21 gram/dose oral powder #238 grams albuterol sulfate 90 mcg/actuation 2 puff inhalation Q6H PRN ##1 04/06/22 aerosol inhaler (ProAir HFA) empagliflozin 25 mg tablet 25 mg PO QAM #90 tabs 04/06/22 (Jardiance) escitalopram oxalate 20 mg tablet 20 mg PO DAILY #90 tab-caps 04/06/22 (Lexapro) fluticasone propionate 220 1 puff inhalation BID PRN sob #12 04/06/22 mcg/actuation HFA aerosol inhaler grams (Flovent HFA) gabapentin 100 mg capsule 200 mg PO HS #180 tab-caps 04/06/22 lancets 28 gauge #550 ea 04/06/22 levothyroxine 125 mcg capsule 125 mcg PO DAILY #90 caps 04/06/22 losartan 25 mg tablet 25 mg PO DAILY #90 tab-caps 04/06/22 magnesium oxide 400 mg (241.3 mg 400 mg PO DAILY #90 tab-caps 04/06/22 magnesium) tablet (MagOx) metformin 1,000 mg tablet 1,000 mg PO BID #180 tab-caps 04/06/22 omeprazole 20 mg capsule,delayed 20 mg PO DAILY PRN dyspepsia #90 04/06/22 release tab-caps pen needle, diabetic 31 gauge x #400 ea 04/06/22/ (Advocate Pen Needle) insulin aspart U-100 100 unit/mL 1 - 30 unit (0.01 - 0.3 mL) subcut 06/29/22 (3 mL) subcutaneous pen (Novolog AC #5 mL FlexPen U-100 Insulin aspart) insulin glargine 100 unit/mL (3 10 - 50 unit (0.1 - 0.5 mL) subcut 06/29/22 mL) subcutaneous pen (Lantus HS #45 mL Solostar U-100 Insulin) trazodone 150 mg tablet 150 mg PO HS #90 tab-caps 07/26/22 escitalopram oxalate 10 mg tablet 10 mg PO DAILY #90 tabs 08/30/22 meclizine 25 mg tablet 12.5 - 25 mg PO TID PRN dizziness 09/28/22 #90 tab-caps lorazepam 1 mg tablet 1 mg PO ONCE #1 tab 10/19/22 atorvastatin 10 mg tablet 10 mg PO DAILY #90 tabs 11/08/22 dulaglutide 1.5 mg/0.5 mL 1.5 mg (0.5 mL) subcut QWEEK #2 mL 11/08/22 subcutaneous pen injector (Trulicity) loratadine 10 mg tablet 10 mg PO DAILY PRN #90 tab-caps 11/24/22 meloxicam 7.5 mg tablet 7.5 mg PO DAILY #30 tabs 11/24/22 blood sugar diagnostic (Blood #360 strips 12/12/22 Glucose Test strips) Allergies Allergy/AdvReac Type Severity Reaction Status Date / Time Penicillins Allergy Unverified 12/25/22 20:16 lisinopril AdvReac Mild dizzy Verified 11/24/22 13:21 General Stated Complaint: Fall/Non TraumaCriteria MILLA: 3 Review of Systems All systems reviewed & are unremarkable except as noted in HPI and below Musculoskeletal Musculoskeletal: Reports as per HPI and Reports arthralgias PFSH All Active Problems Fall (Acute) Other sprain of left shoulder joint, initial encounter (Acute) Low back pain potentially associated with radiculopathy (Acute) Preventative health care (Acute) Chronic hip pain (Acute) Viral URI (Acute) Screening for colon cancer (Acute) COVID-19 (Acute) Asthma (Chronic) Obesity (Chronic) Degenerative joint disease (DJD) of lumbar spine (Acute) Upper respiratory infection (Acute) w/ bronchospasm Sesamoiditis (Chronic) Right foot tibial sesamoid Low blood sugar (Acute) she needs to cut back on insulin dosing--and will start with lantus, by 5 units. 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) ulnar nerve at elbow and CTS at wrist ([facility] 08/31/15) Memory impairment (Acute 04/25/13) Low back pain (Acute 12/03/13) right sciatica Kidney stone (Acute) 2008 Hypothyroidism (Acute 04/25/13) recheck TSH in 2 weeks Hyperlipidemia (Acute 04/25/13) Hip pain, left (Acute) Gastroesophageal reflux disease (Acute) Generalized osteoarthrosis (Acute) Depressive disorder (Acute 11/12/13) Anxiety (Acute) Bronchitis (Acute) Bilateral cataracts (Chronic) Pre-operative examination (Acute) Status post cataract extraction and insertion of intraocular lens of right eye (Chronic 12/24/18) Status post cataract extraction and insertion of intraocular lens of left eye (Chronic 12/10/18) Medical History (Updated 12/25/22 @ 21:30 by Vaishali Terrazas NP) Anxiety Cortical cataract of left eye Cortical cataract of right eye DM (diabetes mellitus) GERD (gastroesophageal reflux disease) Hypothyroidism Neuropathy, upper extremity Nuclear sclerotic cataract of left eye Nuclear sclerotic cataract of right eye Surgical History Cholecystectomy (~2002) colonoscopy (08/08/16) History of carpal tunnel release History of repair of rectocele Total replacement of hip LEFT-2014 Family History Mother , 67 Diabetes Lung cancer Heart disease Father , 80 Essential hypertension Heart disease Sister , 62 Diabetes Heart disease Maternal Grandfather , 90 No problems noted. Paternal Grandfather , 90 Heart disease Maternal Grandmother Heart disease Paternal Grandmother Heart disease Son No problems noted. Daughter No problems noted. Daughter No problems noted. Social History (Updated 04/07/22 @ 09:47 by Katelynn Dhillon) Smoking/Tobacco Use Status: Never Second Hand Exposure: Yes Smoking risk assessment performed?: Yes Alcohol Intake: never Drug use: Never Substance use type: does not use Caregiver/Support person: No Housing: house Pets and animals: Yes Pets and animals: cat(s) and dog(s) Sexually active: No What is your relationship status?: How often do you talk on the phone with friends or family?: three or more times per week How often do you get together with friends or relatives?: once per week How often do you attend buddhist or methodist services?: 4 or more times per year Do you belong to any clubs or organized social groups?: no Panel score (0-1 are the most socially isolated patients): 2 What type of physical activity do you participate in: walking Duration: 15-30 minutes/day Frequency: 1-2 times per week Erika/Synagogue: [employer] Special erika needs: No Seatbelt use: always Do you feel safe in your relationship?: Yes Exam Narrative Exam Narrative: General: Well Developed, Awake and Alert, conversant. Skin: Warm and Dry HEENT: Head: No palpable deformities, Normocephalic Eyes: Pupils PERRLA, EOM's intact. No periorbital eccymosis or step off Ears: Canal patent. Tympanic membranes are clear . No dhillon's sign, no hemptympanum. Nose/Face: Atraumatic. Facial bones nontender to palpation and stable with manipulation. Mouth/Throat: No intraoral trauma. Teeth and mandible are intact. Neck: No midline tenderness, no step off, no deformity to palpation of C-spine. Trachea midline. Chest: No surface trauma. Nontender without crepitus or deformity. Lungs clear to ausculatation bilaterally. Heart: RRR, no rubs, murmurs or gallop. Abdomen: No abrasions, ecchymosis, or surface trauma. Nondistended. Nontender to palpation no guarding, rebound, or rigidity. Pelvis: Nontender to palpation and stable to compression. Femoral pulses strong and equal Extremities: no surface trauma. Sensation intact. Peripheral pulses intact and equal. Neuro: ANO x4, GCS 15, cranial nerves II through XII intact. Motor and sensory exam nonfocal. Reflexes are symmetric. Course Vital Signs Vital signs: Vital Signs Temperature 36.8 C 12/25/22 20:09 Pulse 86 12/25/22 20:09 Respiratory Rate 24 12/25/22 20:09 Blood Pressure 145/84 H 12/25/22 20:09 Pulse Oximetry 96 12/25/22 20:09 Temperature 36.8 C 12/25/22 20:09 Temperature Source Oral 12/25/22 20:09 Pulse 86 12/25/22 20:09 Respiratory Rate 24 12/25/22 20:09 Respiratory Effort Normal 12/25/22 20:13 Blood Pressure 145/84 H 12/25/22 20:09 Blood Pressure Position Sitting 12/25/22 20:09 Pulse Oximetry 96 12/25/22 20:09 Oxygen Delivery Method Room Air 12/25/22 20:09 Oxygen Flow Rate 0 12/25/22 20:09 Pain Level 9 12/25/22 20:09
[2022-12-25] MEDS: Acetaminophen 500 MG TAB PO (20:22)
--- NOTE | 2022-12-25 20:47 | RESPIRATORY ---
Respiratory Therapy on emergency stand by for conscious sedation. End tidal, ambu bag, and suction set up at bedside. Procedure tolerated well without incident.
--- NOTE | 2022-12-25 21:20 | DI.VRAD_ITS ---
PROCEDURE INFORMATION: Exam: XR Left Knee Exam date and time: 12/25/2022 8:41 PM Age: 77 years old Clinical indication: Injury or trauma; Other: Fall pain TECHNIQUE: Imaging protocol: Radiologic exam of the left knee. Views: 3 views. COMPARISON: CR LEFT KNEE 3 VIEW COMPLETE 03/10/2017 3:22 PM FINDINGS: Bones/joints: Osseous alignment is normal. No acute fracture or joint fluid. There is mild spurring of the tibial spines and patella. No other significant degenerative/arthritic changes. Soft tissues: Normal. IMPRESSION: No acute abnormality Dictated and Authenticated by: Robert Triana MD. Ordering:BOOKER Tom MD
--- NOTE | 2022-12-25 21:21 | DI.VRAD_ITS ---
PROCEDURE INFORMATION: Exam: XR Left Humerus Exam date and time: 12/25/2022 8:36 PM Age: 77 years old Clinical indication: Injury or trauma; Other: Fall pain TECHNIQUE: Imaging protocol: Radiologic exam of the left humerus. Views: 2 or more views. COMPARISON: CR XR SHOULDER LT COMPLETE 2+V 12/25/2022 8:30 PM FINDINGS: Bones/joints: Normal. Soft tissues: Normal. IMPRESSION: No acute findings. Dictated and Authenticated by: Robert Triana MD. Ordering:BOOKER Tom MD
--- NOTE | 2022-12-25 21:25 | DI.VRAD_ITS ---
PROCEDURE INFORMATION: Exam: XR Left Shoulder Exam date and time: 12/25/2022 8:30 PM Age: 77 years old Clinical indication: Injury or trauma; Other: Fall pain TECHNIQUE: Imaging protocol: Radiologic exam of the left shoulder. Views: 2 or more views. COMPARISON: CR XR CHEST 2V PA LATERAL 10/15/2018 3:36 PM FINDINGS: Bones/joints: Osseous alignment is normal. No acute fracture. Mild degenerative changes noted in the glenohumeral joint Soft tissues: Normal. IMPRESSION: No acute abnormality Dictated and Authenticated by: Robert Triana MD. Ordering:BOOKER Tom MD
[2022-12-25] MEDS: Lidocaine 5% Patch 1 PATCH TP (21:43)
== END 2022-12-25 21:57 | disposition home or self-care (01) ==
PROVIDERS: Emergency Provider Registered Nurse Emergency; PCP Family Medicine
DX: S43.492A Other sprain of left shoulder joint, initial encounter (principal); G89.11 Acute pain due to trauma; M25.562 Pain in left knee; E11.9 Type 2 diabetes mellitus without complications; E03.9 Hypothyroidism, unspecified; Z79.4 Long term (current) use of insulin; W22.8XXA Striking against or struck by other objects, initial encounter; W10.9XXA Fall (on) (from) unspecified stairs and steps, initial encounter
CPT/HCPCS: 73562; 99284; 73030; 73060

== ENCOUNTER → 2023-10-30 03:34 | Outpatient (CLI) | payer MEDICARE, SELFPAY ==
--- NOTE | 2023-10-30 08:00 | DI.RAD_ITS ---
Exam(s) XR HIP PELVIS ADULT BL EXAM: XR HIP PELVIS ADULT BL CLINICAL HISTORY: zion hip pain,M25.551,M25.552. TECHNIQUE: 2D digital imaging was performed. Three images were obtained. AP, lateral and oblique vi ews were obtained. COMPARISON: CR XR HIP RT COMPLETE AP PELVIS from 11/23/2021 FINDINGS: BONES: There are stable post operative changes of a left total hip replacement present. No fracture or dislocation. There is a stable bone island in the left iliac bone. JOINTS: The orthopedic hardware is in good position. No evidence of hardware loosening. There is mo derate joint space narrowing and spurring seen in the right hip. The sacroiliac joints are well main tained. Moderately severe degenerative changes are seen in the lower lumbar spine. SOFT TISSUE: Dystrophic calcifications are seen adjacent to the left hip. IMPRESSION: 1. Stable postoperative changes. 2. Moderately degenerative changes seen in the right hip. DATA REPOSITORY: RADIATION DOSE DELIVERED:
== END ==
PROVIDERS: PCP Family Medicine; Visit Provider Family Medicine
DX: M25.551 Pain in right hip (principal); M25.552 Pain in left hip; Z47.1 Aftercare following joint replacement surgery
CPT/HCPCS: 73521

== ENCOUNTER → 2024-01-08 13:48 | Outpatient (BNVA) | payer MEDICARE, SELFPAY | PROVIDERS: PCP Family Medicine; Referring Provider Family Medicine; Visit Provider Student in an Organized Health Care Education/Training Program | DX: M70.61 Trochanteric bursitis, right hip (principal); M70.62 Trochanteric bursitis, left hip; M16.11 Unilateral primary osteoarthritis, right hip | CPT/HCPCS: 99213 ==

== ENCOUNTER 2024-12-02 03:07 | Outpatient (CLI) | payer MEDICARE, SELFPAY ==
[2024-12-02 16:09] LABS: Calcium 9.5 mg/dL (8.5-10.1)
[2024-12-02 16:10] LABS: BUN 20 mg/dL (7-18); CREATININE 0.9 mg/dL (0.55-1.02); Chloride 110 mmol/L (98-107); Estimated GFR 65.44 (mL/min/1.73m2); Glucose 65 mg/dL (74-106); Potassium 3.6 mmol/L (3.5-5.1); Sodium 145 mmol/L (136-145); TSH (W/Ref FT4) 0.03 uIU/mL (0.36-3.74); Vitamin B12 454 pg/mL (193-986)
[2024-12-03 02:41] LABS: FREE T4 1.54 ng/dL (0.76-1.46)
[2024-12-03 10:22] LABS: Syphilis Serology (RPR) Negative (Negative)
== END 2024-12-02 03:08 | disposition home or self-care (01) ==
PROVIDERS: PCP Family Medicine; Visit Provider Family Medicine
DX: E03.9 Hypothyroidism, unspecified (principal); E87.1 Hypo-osmolality and hyponatremia; D64.9 Anemia, unspecified; R41.3 Other amnesia
CPT/HCPCS: 36415; 80048; 82607; 84439; 84443; 86592

== ENCOUNTER 2025-02-18 03:52 | Outpatient (CLI) | payer MEDICARE, SELFPAY ==
[2025-02-18 16:45] LABS: TSH (W/Ref FT4) 0.03 uIU/mL (0.36-3.74)
[2025-02-19 00:38] LABS: FREE T4 1.65 ng/dL (0.76-1.46)
== END 2025-02-18 03:53 | disposition home or self-care (01) ==
LOC: LBO 03:52
PROVIDERS: PCP Family Medicine; Visit Provider Family Medicine
DX: E03.9 Hypothyroidism, unspecified (principal)
CPT/HCPCS: 36415; 84439; 84443

== ENCOUNTER 2025-03-09 09:43 | Emergency (ER) | payer MEDICARE, SELFPAY ==
[2025-03-09] VITALS (8 sets, daily range): BP systolic 96–130; BP diastolic 65–67; PULSE 72–83; RESP 16–22; TEMP 36.6; O2SAT 96–100
--- NOTE | 2025-03-09 09:45 | DI.CT_ITS ---
Exam(s) CT HEAD CERVICAL SPINE WO EXAM: CT HEAD CERVICAL SPINE WO CLINICAL HISTORY: fall. TECHNIQUE: Imaging Protocol: Axial computed tomography images with coronal and sagittal reformatted images were created and reviewed COMPARISON: CT HEAD AND NECK WO CONTRAST from 11/06/2017 FINDINGS: BRAIN: There are no skull fractures nor fluid in the visualized paranasal sinuses. There is no evidence of intracranial hemorrhage, mass effect, or shift of midline structures. There are no extra-axial fluid collections. The ventricles are not enlarged or shifted and there is no blo od within the ventricular system nor within the basal cisterns. CERVICAL SPINE: There is no evidence of fracture nor listhesis. No significant prevertebral soft tissue swelling. There is multilevel moderate disc space narrowing at C5-6 and C6-7 levels. Some calcification is not ed in the posterior annulus at C4-5 and C5-6 levels. No significant facet arthropathy. There is no significant facet joint malalignment. No significant osseous lesions evident. IMPRESSION: No acute intracranial findings on this noninfused CT scan of the brain. No evidence of cervical spine fracture, malalignment, nor acute compromise of the cervical spinal can al. Some disc space narrowing evident at C5-6 and C6-7 levels. RADIATION DOSE DELIVERED: 1,214.2mGy.cm Total DLP DATA REPOSITORY: All CT scans at this facility are submitted to the National Radiology Data Registry (NRDR) Dose Index Registry (DIR) with the [employer] (ACR). RADIATION OPTIMIZATION: All CT scans at this facility use at least one of these dose optimization te chniques: automated exposure control; mA and/or kV adjustment per patient size (includes targeted exa ms where dose is matched to clinical indication); or iterative reconstruction.
--- NOTE | 2025-03-09 10:25 | W.ED.GENAD ---
Discharge Plan Disposition Patient Disposition: Home Discharge Details Clinical Impression: Fall, Bilateral hip pain, Left shoulder pain, Contusion of face Primary Care Provider: Jose Toth ED Provider: Tushar Biggs Home Meds and New Rx's Prescriptions: No Action acetaminophen 500 mg capsule 500 mg PO Q6H PRN (Reason: pain) Qty: 60 0RF Rx Instructions: Take 1 capsule every 6 hours as needed for pain methocarbamol 500 mg tablet 500 mg PO Q6H PRN (Reason: pain) Qty: 60 0RF Rx Instructions: Take 1 tab every 6 hours as needed for pain magnesium oxide [MagOx] 400 mg (241.3 mg magnesium) tablet 400 mg PO DAILY Qty: 90 3RF (DME) lancets 28 gauge misc 1 ea Intradermal 4-6X/DAY Qty: 550 4RF Rx Instructions: CONTOUR NEXT EZ LANCETS, NTROL, test qid fluticasone propionate [Flovent HFA] 220 mcg/actuation HFA aerosol inhaler 1 puff Inhalation BID PRN (Reason: sob) Qty: 12 5RF ipratropium bromide 42 mcg (0.06 %) spray,non-aerosol 2 spray intranasal TID Qty: 15 2RF Rx Instructions: administer into each nostril losartan 25 mg tablet 25 mg PO DAILY Qty: 90 3RF metformin 1,000 mg tablet 1,000 mg PO BID Qty: 180 4RF Rx Instructions: 1 TAB BID escitalopram oxalate [Lexapro] 20 mg tablet 20 mg PO DAILY Qty: 90 3RF Rx Instructions: take 20 mg AM; 10 mg PM trazodone 150 mg tablet 150 mg PO HS Qty: 90 3RF donepezil 5 mg tablet 5 mg PO DAILY Qty: 30 2RF albuterol sulfate 90 mcg/actuation HFA aerosol inhaler 2 puff Inhalation Q6H PRN Qty: 6.7 11RF fluticasone propionate 50 mcg/actuation spray,suspension 2 spray NS DAILY PRN (Reason: Nasal Congestion) Qty: 15.8 5RF (DME) OptiChamber Luana Lg Mask Spacer See Rx Instructions .ROUTE .MEDSUPPLY Qty: 1 0RF Rx Instructions: As directed loratadine 10 mg tablet 10 mg PO DAILY PRN Qty: 90 3RF Rx Instructions: 1 TAB DAILY PRN dapagliflozin propanediol [Farxiga] 10 mg tablet 10 mg PO DAILY Qty: 90 3RF meclizine 25 mg tablet 12.5 - 25 mg PO TID PRN (Reason: dizziness) Qty: 90 3RF (DME) Blood Glucose Test Strip 1 strip Miscellaneous 4-6X/DAY Qty: 360 4RF Rx Instructions: ONTOUR NEXT EZ, test QID (DME) pen needle, diabetic [Advocate Pen Needle] 31 gauge x 5/16 needle See Rx Instructions .ROUTE .MEDSUPPLY Qty: 400 3RF Rx Instructions: inject 4 x/day (DME) pen needle, diabetic [BD Ultra-Fine Mini Pen Needle] 31 gauge x 3/16 needle See Rx Instructions .ROUTE .MEDSUPPLY Qty: 400 3RF Rx Instructions: inject 4 x/day escitalopram oxalate 10 mg tablet 10 mg PO DAILY Qty: 90 3RF atorvastatin 10 mg tablet 10 mg PO DAILY Qty: 90 3RF gabapentin 100 mg capsule 200 mg PO HS Qty: 180 4RF meloxicam 7.5 mg tablet 7.5 mg PO BID Qty: 60 3RF levothyroxine [Levo-T] 100 mcg tablet 100 mcg PO DAILY Qty: 90 3RF omeprazole 20 mg capsule,delayed release(DR/EC) 20 mg PO DAILY PRN (Reason: dyspepsia) Qty: 90 3RF Rx Instructions: 1 CAP DAILY Discharge Instructions Additional Instructions: X-rays and CT scans do not reveal any fractures, broken bones, intracranial injury. You will likely be sore for a few days, you can continue Tylenol or Motrin for this. Please follow-up with your PCP as needed. HPI General Date/Time Provider Initiated Documentation: 03/09/25 09:57. Limitations to Documentation: no limitations. Information obtained by: patient. HPI Narrative: 79-year-old female with past medical history including diabetes high blood pressure presents for evaluation after a fall. She reports that she turned quickly in her kitchen and her cat named peaches got under her feet and caused her to fall down. She hit her head and left shoulder against the wall before hitting the ground. She reports that she did not lose consciousness and remembers all of the events. She was able to get herself up off the floor. She notes that she has left hip and left shoulder pain. Worse with range of motion. Denies significant difficulty with walking. She noted a bruise to her forehead and she applied ice to this area. She thinks that her glasses must of caused an injury. She is not on any blood thinners. She reports that peaches as to cause problems like this before but otherwise she, reports that she does fairly well with walking. Related Data Home Medications ?Medication ?Instructions ?Recorded ?Confirmed inhalat.spacing dev,large mask #1 ea 03/03/20 03/09/25 ([facility] with Large Mask) acetaminophen 500 mg capsule 500 mg PO Q6H PRN pain #60 caps 04/20/20 03/09/25 methocarbamol 500 mg tablet 500 mg PO Q6H PRN pain #60 tabs 04/20/20 03/09/25 fluticasone propionate 220 1 puff inhalation BID PRN sob #12 04/06/22 03/09/25 mcg/actuation HFA aerosol inhaler grams (Flovent HFA) lancets 28 gauge #550 ea 04/06/22 03/09/25 magnesium oxide 400 mg (241.3 mg 400 mg PO DAILY #90 tab-caps 04/06/22 03/09/25 magnesium) tablet (MagOx) loratadine 10 mg tablet 10 mg PO DAILY PRN #90 tab-caps 09/18/23 03/09/25 ipratropium bromide 42 mcg (0.06 2 spray intranasal TID #15 mL 10/26/23 03/09/25 %) nasal spray dapagliflozin propanediol 10 mg 10 mg PO DAILY #90 tabs 11/11/23 03/09/25 tablet (Farxiga) meclizine 25 mg tablet 12.5 - 25 mg (0.5 - 1 x 25 mg) PO 11/28/23 03/09/25 TID PRN dizziness #90 tab-caps blood sugar diagnostic (Blood #360 strips 04/08/24 03/09/25 Glucose Test strips) pen needle, diabetic 31 gauge x #400 ea 04/08/24 03/09/25 316 (BD Ultra-Fine Mini Pen Needle) pen needle, diabetic 31 gauge x #400 ea 04/08/24 03/09/2502/21 (Advocate Pen Needle) albuterol sulfate 90 mcg/actuation 2 puff inhalation Q6H PRN #6.7 04/30/24 03/09/25 aerosol inhaler grams fluticasone propionate 50 2 spray NS DAILY PRN Nasal 04/30/24 03/09/25 mcg/actuation nasal Congestion #15.8 mL spray,suspension atorvastatin 10 mg tablet 10 mg PO DAILY #90 tabs 08/29/24 03/09/25 escitalopram oxalate 10 mg tablet 10 mg PO DAILY #90 tabs 08/29/24 03/09/25 gabapentin 100 mg capsule 200 mg (2 x 100 mg) PO HS #180 09/30/24 03/09/25 tab-caps meloxicam 7.5 mg tablet 7.5 mg PO BID #60 tabs 11/11/24 03/09/25 donepezil 5 mg tablet 5 mg PO DAILY #30 tabs 02/06/25 03/09/25 escitalopram oxalate 20 mg tablet 20 mg PO DAILY #90 tab-caps 02/06/25 03/09/25 (Lexapro) losartan 25 mg tablet 25 mg PO DAILY #90 tab-caps 02/06/25 03/09/25 metformin 1,000 mg tablet 1,000 mg PO BID #180 tab-caps 02/06/25 03/09/25 trazodone 150 mg tablet 150 mg PO HS #90 tab-caps 02/06/25 03/09/25 levothyroxine 100 mcg tablet 100 mcg PO DAILY #90 tabs 02/19/25 03/09/25 (Levo-T) omeprazole 20 mg capsule,delayed 20 mg PO DAILY PRN dyspepsia #90 03/04/25 03/09/25 release tab-caps Previous Rx's ?Medication ?Instructions ?Recorded inhalat.spacing dev,large mask #1 ea 03/03/20 ([facility] with Large Mask) acetaminophen 500 mg capsule 500 mg PO Q6H PRN pain #60 caps 04/20/20 methocarbamol 500 mg tablet 500 mg PO Q6H PRN pain #60 tabs 04/20/20 fluticasone propionate 220 1 puff inhalation BID PRN sob #12 04/06/22 mcg/actuation HFA aerosol inhaler grams (Flovent HFA) lancets 28 gauge #550 ea 04/06/22 magnesium oxide 400 mg (241.3 mg 400 mg PO DAILY #90 tab-caps 04/06/22 magnesium) tablet (MagOx) loratadine 10 mg tablet 10 mg PO DAILY PRN #90 tab-caps 09/18/23 ipratropium bromide 42 mcg (0.06 2 spray intranasal TID #15 mL 10/26/23 %) nasal spray dapagliflozin propanediol 10 mg 10 mg PO DAILY #90 tabs 11/11/23 tablet (Farxiga) meclizine 25 mg tablet 12.5 - 25 mg (0.5 - 1 x 25 mg) PO 11/28/23 TID PRN dizziness #90 tab-caps blood sugar diagnostic (Blood #360 strips 04/08/24 Glucose Test strips) pen needle, diabetic 31 gauge x #400 ea 04/08/2412/22 (BD Ultra-Fine Mini Pen Needle) pen needle, diabetic 31 gauge x #400 ea 04/08/2402/21 (Advocate Pen Needle) albuterol sulfate 90 mcg/actuation 2 puff inhalation Q6H PRN #6.7 04/30/24 aerosol inhaler grams fluticasone propionate 50 2 spray NS DAILY PRN Nasal 04/30/24 mcg/actuation nasal Congestion #15.8 mL spray,suspension atorvastatin 10 mg tablet 10 mg PO DAILY #90 tabs 08/29/24 escitalopram oxalate 10 mg tablet 10 mg PO DAILY #90 tabs 08/29/24 gabapentin 100 mg capsule 200 mg (2 x 100 mg) PO HS #180 09/30/24 tab-caps meloxicam 7.5 mg tablet 7.5 mg PO BID #60 tabs 11/11/24 donepezil 5 mg tablet 5 mg PO DAILY #30 tabs 02/06/25 escitalopram oxalate 20 mg tablet 20 mg PO DAILY #90 tab-caps 02/06/25 (Lexapro) losartan 25 mg tablet 25 mg PO DAILY #90 tab-caps 02/06/25 metformin 1,000 mg tablet 1,000 mg PO BID #180 tab-caps 02/06/25 trazodone 150 mg tablet 150 mg PO HS #90 tab-caps 02/06/25 levothyroxine 100 mcg tablet 100 mcg PO DAILY #90 tabs 02/19/25 (Levo-T) omeprazole 20 mg capsule,delayed 20 mg PO DAILY PRN dyspepsia #90 03/04/25 release tab-caps Allergies Allergy/AdvReac Type Severity Reaction Status Date / Time Penicillins Allergy childhood Unverified 03/09/25 09:55 allergy lisinopril AdvReac Mild dizzy Verified 03/09/25 09:55 General Stated Complaint: Fall/Non TraumaCriteria MILLA: 3 Exam Narrative Exam Narrative: Review of Systems: All systems reviewed & are unremarkable except as noted in HPI and below Well-developed, no acute distress contusion over left congregational, no Laceration or active bleeding no skull deformity appreciated, no malocclusion Bilateral TMs without hemotympanum C-spine without tenderness step-off or deformity PERRL, normal conjunctiva RRR, no chest wall tenderness Unlabored respiratory effort, clear bilaterally Nondistended abdomen , soft nontender pelvis stable, mild Hip tenderness on the right with palpation, normal range of motion Left shoulder without obvious deformity, but there is tenderness to palpation of the proximal humerus no focal neurologic deficits Course Vital Signs Vital signs: Vital Signs Pulse 83 03/09/25 09:50 Respiratory Rate 19 03/09/25 09:50 Pulse Oximetry 100 03/09/25 09:50 Temperature 36.6 C 03/09/25 09:52 Temperature Source Oral 03/09/25 09:52 Pulse 76 03/09/25 10:00 Pulse 74 03/09/25 10:00 Respiratory Rate 19 03/09/25 10:00 Blood Pressure 96/65 L 03/09/25 09:52 Blood Pressure Mean 74 03/09/25 09:52 Blood Pressure Position Supine 03/09/25 09:52 Pulse Oximetry 98 03/09/25 10:00 Oxygen Delivery Method Room Air 03/09/25 09:52 Oxygen Flow Rate 0 03/09/25 09:52 Pain Level 8 03/09/25 09:57 Medical Decision Making Patient is an evaluation of an acute fall with traumatic complaints. Patient had a mechanical trip and fall just the cats. No preceding or prodromal symptoms concerning for vasovagal episode or cardiogenic syncope. The patient is noted to have some minor head trauma, but she has no high risk features concerning for skull fracture or intracranial bleeding is not currently anticoagulated. Initial differential includes contusion, left arm fracture, doubt intra-abdominal traumatic pathology. Plan for imaging, pain control with Tylenol and reassessment. CT imaging of head shoulder and pelvis unremarkable for any acute traumatic injuries. Patient was up and able to ambulate around the emergency department without any difficulty, significant pain or instability. The patient will be discharged home. Recommend that she follow-up closely with her PCP if there are any ongoing symptoms, and otherwise watch out for her cat. Quality:SDOH Health Related Social Needs: No Data to Display PFSH All Active Problems Contusion of face (Acute) Left shoulder pain (Acute) Bilateral hip pain (Acute) Fall (Acute) Dizziness (Acute) Rash (Acute) Osteoarthritis of right hip (Acute) Trochanteric bursitis of both hips (Acute) Vasomotor rhinitis (Acute) Bilateral hip pain (Acute) Weight loss due to medication (Acute) Gait disturbance (Acute) Low back pain potentially associated with radiculopathy (Acute) Preventative health care (Acute) Chronic hip pain (Acute) Viral URI (Acute) Screening for colon cancer (Acute) COVID-19 (Acute) Asthma (Chronic) Obesity (Chronic) Degenerative joint disease (DJD) of lumbar spine (Acute) Upper respiratory infection (Acute) w/ bronchospasm Sesamoiditis (Chronic) Right foot tibial sesamoid Low blood sugar (Acute) she needs to cut back on insulin dosing--and will start with lantus, by 5 units. 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 (Acute 01/07/16) Status post cholecystectomy (Acute) Infectious tenosynovitis (Acute) Type 2 diabetes mellitus without complication (Acute) Diabetes mellitus (Chronic) we will increase jardiance to help reduce lantus use DM w/o complication type II, uncontrolled (Acute 03/24/15) Status post left hip replacement (Acute 01/07/16) Dr Lee, [facility] Polyp of colon (Acute) Tubular adenoma 2009 (due, Dr Tanner 2014) 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/01/15) ulnar nerve at elbow and CTS at wrist ([facility] 08/31/15) Memory impairment (Acute 04/25/13) Low back pain (Acute 12/03/13) right sciatica Kidney stone (Acute) 2009 Hypothyroidism (Acute 04/25/13) recheck TSH in 2 weeks Hyperlipidemia (Acute 04/25/13) Hip pain, left (Acute) Gastroesophageal reflux disease (Acute) Generalized osteoarthrosis (Acute) Depressive disorder (Acute 11/12/13) Anxiety (Acute) Bronchitis (Acute) Bilateral cataracts (Chronic) Pre-operative examination (Acute) Status post cataract extraction and insertion of intraocular lens of right eye (Chronic 12/24/18) Status post cataract extraction and insertion of intraocular lens of left eye (Chronic 12/10/18) Medical History Anxiety Cortical cataract of left eye Cortical cataract of right eye DM (diabetes mellitus) GERD (gastroesophageal reflux disease) Hypothyroidism Neuropathy, upper extremity Nuclear sclerotic cataract of left eye Nuclear sclerotic cataract of right eye Surgical History Cholecystectomy (~2002) colonoscopy (08/08/16) History of carpal tunnel release History of repair of rectocele Total replacement of hip LEFT-2014 Family History Mother , 67 Diabetes Lung cancer Heart disease Father , 80 Essential hypertension Heart disease Sister , 62 Diabetes Heart disease Maternal Grandfather , 90 No problems noted. Paternal Grandfather , 90 Heart disease Maternal Grandmother Heart disease Paternal Grandmother Heart disease Son No problems noted. Daughter No problems noted. Daughter No problems noted. Social History (Updated 05/17/24 @ 13:26 by Philly Geiger) Smoking/Tobacco Use Status: Never Second Hand Exposure: Yes Smoking risk assessment performed?: Yes Alcohol Intake: never Drug use: Never Substance use type: does not use Caregiver/Support person: No Housing: house Pets and animals: Yes Pets and animals: cat(s) and dog(s) Sexually active: No What is your relationship status?: How often do you talk on the phone with friends or family?: three or more times per week How often do you get together with friends or relatives?: once per week How often do you attend zoroastrian or adventism services?: 4 or more times per year Do you belong to any clubs or organized social groups?: no Panel score (0-1 are the most socially isolated patients): 2 What type of physical activity do you participate in: walking Duration: 15-30 minutes/day Frequency: 1-2 times per week Erika/Religious: Anabaptist Special erika needs: No Seatbelt use: always Helmet use: No Drive intox or ride w/intox cattle driver: No Do you feel safe in your relationship?: Yes Additional Social history: has life alert, lives in ranch house with a few steps
--- NOTE | 2025-03-09 10:27 | DI.RAD_ITS ---
Exam(s) XR HIP PELVIS ADULT BL EXAM: XR HIP PELVIS ADULT BL CLINICAL HISTORY: fall. TECHNIQUE: 2D digital imaging was performed. COMPARISON: CR XR HIP PELVIS ADULT BL from 10/30/2023 FINDINGS: 3 views No evidence of acute pelvic nor hip fracture. Appearance of the left hip prosthesis is unchanged fro m 10/30/2023. There is also dystrophic calcification lateral to the left hip prosthesis, unchanged. There are no fractures evident in the opposite-right hip. Only mild degenerative changes. There is chronic advanced disc space narrowing in the lower lumbar spine again noted. IMPRESSION: Findings as above but no acute fractures evident in the pelvis and hips. DATA REPOSITORY: RADIATION DOSE DELIVERED:
--- NOTE | 2025-03-09 10:27 | DI.RAD_ITS ---
Exam(s) XR SHOULDER LT COMPLETE 2+V EXAM: XR SHOULDER LT COMPLETE 2+V CLINICAL HISTORY: fall, shoulder pain. TECHNIQUE: 2D digital imaging was performed. COMPARISON: CR,XR XR SHOULDER LT COMPLETE 2+V from 12/25/2022 FINDINGS: Five views. On 1 image there is a small 3 millimeter x 3 millimeter osteophytic density immediately adjacent to t he greater tuberosity of the [place] head. There does not appear to be an obvious fracture and this is probably related to calcific rotator cuff tendinitis more so than an acute fracture fragment. The subacromial space is not diminished. There are minimal degenerative changes in the glenohumeral and AC joints. No dislocation. Clavicle appears unremarkable. Bone density normal. No osseous lesion s. IMPRESSION: Small calcific density adjacent to the greater tuberosity of the lateral humeral head. Probably cons istent with element of calcific rotator cuff tendinitis. No obvious fractures DATA REPOSITORY: RADIATION DOSE DELIVERED:
[2025-03-09] MEDS: Acetaminophen 500 MG TAB 1000 MG PO (10:46)
--- NOTE | 2025-03-09 11:00 | DI.VRAD_ITS ---
PROCEDURE INFORMATION: Exam: XR Left Shoulder Exam date and time: 03/09/2025 10:13 AM Age: 79 years old Clinical indication: Injury or trauma; Other: Fall, shoulder pain TECHNIQUE: Imaging protocol: Radiologic exam of the left shoulder. Views: 2 or more views. COMPARISON: CR XR SHOULDER LT COMPLETE 2+V 12/25/2022 8:30 PM FINDINGS: Bones/joints: No acute fracture or dislocation. Soft tissues: Unremarkable. IMPRESSION: No acute fracture. Dictated and Authenticated by: Jose Cruz Murillo MD. Orderin Dian Harvey MD
--- NOTE | 2025-03-09 11:01 | DI.VRAD_ITS ---
PROCEDURE INFORMATION: Exam: XR Bilateral Hips Exam date and time: 03/09/2025 10:22 AM Age: 79 years old Clinical indication: Injury or trauma; Fall TECHNIQUE: Imaging protocol: Radiologic exam of the bilateral hips. Views: 2 views of hips with pelvis when performed. COMPARISON: CR XR HIP PELVIS ADULT BL 10/30/2023 9:02 AM FINDINGS: Bones/joints: There is a left hip arthroplasty. No acute fracture or malalignment. Soft tissues: Unremarkable. IMPRESSION: No acute fracture. Dictated and Authenticated by: Jose Cruz Murillo MD. Orderin Dian Harvey MD
--- NOTE | 2025-03-09 11:05 | DI.VRAD_ITS ---
PROCEDURE INFORMATION: Exam: CT Head Without Contrast Exam date and time: 03/09/2025 10:21 AM Age: 79 years old Clinical indication: Other: Fall TECHNIQUE: Imaging protocol: Computed tomography of the head without contrast. COMPARISON: No relevant prior studies available. FINDINGS: Brain: Normal. No hemorrhage. Unremarkable white matter. No mass effect. Cerebral ventricles: No ventriculomegaly. Paranasal sinuses: Visualized sinuses are unremarkable. No fluid levels. Mastoid air cells: Visualized mastoid air cells are well aerated. Bones: Unremarkable. No acute fracture. Soft tissues: Small left periorbital contusion. IMPRESSION: No acute intracranial abnormality. PROCEDURE INFORMATION: Exam: CT Cervical Spine Without Contrast Exam date and time: 03/09/2025 10:21 AM Age: 79 years old Clinical indication: Other: Fall TECHNIQUE: Imaging protocol: Computed tomography of the cervical spine without contrast. COMPARISON: CR XR SHOULDER LT COMPLETE 2+V 03/09/2025 10:13 AM FINDINGS: Bones: Reversal of the cervical lordosis may be secondary to positioning or pain. No acute fracture or subluxation. Lungs: Unremarkable. Soft tissues: Unremarkable. IMPRESSION: No acute fracture or subluxation. Dictated and Authenticated by: Jose Cruz Murillo MD. Orderin Dian Harvey MD
== END 2025-03-09 11:45 | disposition home or self-care (01) ==
PROVIDERS: Emergency Provider Emergency Medicine; PCP Family Medicine
DX: M25.551 Pain in right hip; M25.552 Pain in left hip; E11.9 Type 2 diabetes mellitus without complications; E78.5 Hyperlipidemia, unspecified; Z79.84 Long term (current) use of oral hypoglycemic drugs; W01.198A Fall on same level from slipping, tripping and stumbling with subsequent striking against other object, initial encounter; Y93.01 Activity, walking, marching and hiking; Y92.018 Other place in single-family (private) house as the place of occurrence of the external cause; S00.83XA Contusion of other part of head, initial encounter
CPT/HCPCS: 73521; 99284; 70450; 72125; 73030

== ENCOUNTER 2025-05-12 10:43 | Outpatient (CLI) | payer MEDICARE, SELFPAY ==
[2025-05-12 12:46] LABS: TSH (W/Ref FT4) 0.23 uIU/mL (0.36-3.74)
== END 2025-05-12 10:44 | disposition home or self-care (01) ==
LOC: LOS 10:44
PROVIDERS: PCP Family Medicine; Visit Provider Family Medicine
DX: E03.9 Hypothyroidism, unspecified (principal)
CPT/HCPCS: 36415; 84439; 84443

== ENCOUNTER 2025-09-16 01:33 | Outpatient (CLI) | payer MEDICARE, SELFPAY ==
[2025-09-16 16:41] LABS: Hemoglobin A1C 5.9 % (<5.7)
[2025-09-16 16:48] LABS: TSH (W/Ref FT4) 0.28 uIU/mL (0.55-4.78)
== END 2025-09-16 01:34 | disposition home or self-care (01) ==
LOC: LOS 01:33
PROVIDERS: PCP Family Medicine; Visit Provider Family Medicine
DX: E03.9 Hypothyroidism, unspecified (principal); R73.9 Hyperglycemia, unspecified
CPT/HCPCS: 36415; 83036; 84439; 84443